=== PATIENT | female | born 1935 | race Caucasian/White ===

== ENCOUNTER 2017-01-28 10:38 | Outpatient (CLI) | payer MEDICARE, OTHER | END 2017-01-28 10:39 | disposition home or self-care (01) | LOC: LAB.F 10:38 | PROVIDERS: ATTEND Internal Medicine | DX: I48.91 Unspecified atrial fibrillation (principal); Z79.01 Long term (current) use of anticoagulants | CPT/HCPCS: 85610 ==

== ENCOUNTER 2017-03-23 10:38 | Outpatient (CLI) | payer MEDICARE, OTHER | END 2017-03-23 10:39 | disposition home or self-care (01) | LOC: LAB.F 10:38 | PROVIDERS: ATTEND Internal Medicine | DX: I48.91 Unspecified atrial fibrillation (principal); Z79.01 Long term (current) use of anticoagulants | CPT/HCPCS: 85610 ==

== ENCOUNTER 2017-04-29 14:43 | Outpatient (CLI) | payer MEDICARE, OTHER | END 2017-04-29 14:44 | disposition home or self-care (01) | LOC: LAB.F 14:43 | PROVIDERS: ATTEND Internal Medicine | DX: I48.91 Unspecified atrial fibrillation (principal); Z79.01 Long term (current) use of anticoagulants | CPT/HCPCS: 85610 ==

== ENCOUNTER 2017-06-01 15:50 | Outpatient (CLI) | payer MEDICARE, OTHER | END 2017-06-01 15:51 | disposition home or self-care (01) | LOC: LAB.F 15:50 | PROVIDERS: ATTEND Internal Medicine | DX: I48.91 Unspecified atrial fibrillation (principal); Z79.01 Long term (current) use of anticoagulants | CPT/HCPCS: 85610 ==

== ENCOUNTER 2017-07-19 09:58 | Outpatient (CLI) | payer MEDICARE, OTHER | END 2017-07-19 09:59 | disposition home or self-care (01) | LOC: LAB.F 09:58 | PROVIDERS: ATTEND Internal Medicine | DX: I48.91 Unspecified atrial fibrillation (principal); Z79.01 Long term (current) use of anticoagulants | CPT/HCPCS: 85610 ==

== ENCOUNTER 2017-09-06 08:11 | Outpatient (CLI) | payer MEDICARE, OTHER | END 2017-09-06 08:12 | disposition home or self-care (01) | LOC: LAB.F 08:11 | PROVIDERS: ATTEND Internal Medicine | DX: I48.91 Unspecified atrial fibrillation (principal); Z79.01 Long term (current) use of anticoagulants | CPT/HCPCS: 85610 ==

== ENCOUNTER 2017-09-27 08:16 | Outpatient (CLI) | payer MEDICARE, OTHER | END 2017-09-27 08:17 | disposition home or self-care (01) | LOC: LAB.F 08:16 | PROVIDERS: ATTEND Internal Medicine | DX: I48.91 Unspecified atrial fibrillation (principal); Z79.01 Long term (current) use of anticoagulants | CPT/HCPCS: 85610 ==

== ENCOUNTER 2017-11-18 10:02 | Outpatient (CLI) | payer MEDICARE, OTHER | END 2017-11-18 10:03 | disposition home or self-care (01) | LOC: DI 10:02 | PROVIDERS: ATTEND Internal Medicine Cardiovascular Disease | DX: I48.91 Unspecified atrial fibrillation (principal); I50.9 Heart failure, unspecified | CPT/HCPCS: 93306 ==

== ENCOUNTER 2017-11-22 09:25 | Outpatient (CLI) | payer MEDICARE, OTHER | END 2017-11-22 09:26 | disposition home or self-care (01) | LOC: LAB.F 09:25 | PROVIDERS: ATTEND Internal Medicine | DX: Z79.01 Long term (current) use of anticoagulants (principal) | CPT/HCPCS: 85610 ==

== ENCOUNTER 2017-11-29 08:44 | Outpatient (CLI) | payer MEDICARE, OTHER | END 2017-11-29 08:45 | disposition home or self-care (01) | LOC: LAB.F 08:44 | PROVIDERS: ATTEND Internal Medicine | DX: Z79.01 Long term (current) use of anticoagulants (principal) | CPT/HCPCS: 85610 ==

== ENCOUNTER 2017-12-06 08:23 | Outpatient (CLI) | payer MEDICARE, OTHER | END 2017-12-06 08:24 | disposition home or self-care (01) | LOC: LAB.F 08:23 | PROVIDERS: ATTEND Internal Medicine | DX: Z79.01 Long term (current) use of anticoagulants (principal) | CPT/HCPCS: 85610 ==

== ENCOUNTER 2017-12-07 09:06 | Outpatient (CLI) | payer MEDICARE, OTHER ==
[2017-12-07 09:47] LABS: CALCIUM 9.8 mg/dL (8.5-10.3); CREATININE 1.2 mg/dL (0.4-1.0)
== END 2017-12-07 09:07 | disposition home or self-care (01) ==
LOC: LAB 09:06
PROVIDERS: ATTEND Internal Medicine Cardiovascular Disease
DX: N18.3 Chronic kidney disease, stage 3 (moderate) (principal); I50.22 Chronic systolic (congestive) heart failure
CPT/HCPCS: 36415; 80048; 83880

== ENCOUNTER 2017-12-13 08:00 | Outpatient (CLI) | payer MEDICARE, OTHER | END 2017-12-13 08:01 | disposition home or self-care (01) | LOC: LAB.F 08:00 | PROVIDERS: ATTEND Family Medicine | DX: I48.91 Unspecified atrial fibrillation (principal) | CPT/HCPCS: 85610 ==

== ENCOUNTER 2017-12-20 11:21 | Outpatient (CLI) | payer MEDICARE, OTHER | END 2017-12-20 11:22 | disposition home or self-care (01) | LOC: LAB.F 11:21 | PROVIDERS: ATTEND Family Medicine | DX: I48.91 Unspecified atrial fibrillation (principal) | CPT/HCPCS: 85610 ==

== ENCOUNTER 2017-12-27 08:01 | Outpatient (CLI) | payer MEDICARE, OTHER | END 2017-12-27 08:02 | disposition home or self-care (01) | LOC: LAB.F 08:01 | PROVIDERS: ATTEND Family Medicine | DX: I48.91 Unspecified atrial fibrillation (principal) | CPT/HCPCS: 85610 ==

== ENCOUNTER 2018-01-02 14:47 | Outpatient (CLI) | END 2018-01-02 14:48 | disposition home or self-care (01) ==

== ENCOUNTER 2018-01-13 10:16 | Outpatient (CLI) | payer MEDICARE, OTHER | END 2018-01-13 10:17 | disposition home or self-care (01) | LOC: LAB.F 10:16 | PROVIDERS: ATTEND Family Medicine | DX: I48.91 Unspecified atrial fibrillation (principal) | CPT/HCPCS: 85610 ==

== ENCOUNTER 2018-02-07 11:29 | Outpatient (CLI) | payer MEDICARE, OTHER | END 2018-02-07 11:30 | disposition home or self-care (01) | LOC: LAB.F 11:29 | PROVIDERS: ATTEND Family Medicine | DX: I48.91 Unspecified atrial fibrillation (principal) | CPT/HCPCS: 85610 ==

== ENCOUNTER 2018-02-14 08:00 | Outpatient (CLI) | payer MEDICARE, OTHER | END 2018-02-14 08:01 | disposition home or self-care (01) | LOC: LAB.F 08:00 | PROVIDERS: ATTEND Family Medicine | DX: I48.91 Unspecified atrial fibrillation (principal) | CPT/HCPCS: 85610 ==

== ENCOUNTER 2018-02-21 10:55 | Outpatient (CLI) | payer MEDICARE, OTHER | END 2018-02-21 10:56 | disposition home or self-care (01) | LOC: LAB.F 10:55 | PROVIDERS: ATTEND Family Medicine | DX: I48.91 Unspecified atrial fibrillation (principal) | CPT/HCPCS: 85610 ==

== ENCOUNTER 2018-03-01 14:30 | Outpatient (CLI) | payer MEDICARE, OTHER | END 2018-03-01 14:31 | disposition home or self-care (01) | LOC: LAB.F 14:30 | PROVIDERS: ATTEND Family Medicine | DX: I48.91 Unspecified atrial fibrillation (principal) | CPT/HCPCS: 85610 ==

== ENCOUNTER 2018-03-07 10:56 | Outpatient (CLI) | payer MEDICARE, OTHER | END 2018-03-07 10:57 | disposition home or self-care (01) | LOC: LAB.F 10:56 | PROVIDERS: ATTEND Family Medicine | DX: N18.3 Chronic kidney disease, stage 3 (moderate) (principal); I48.91 Unspecified atrial fibrillation; I42.9 Cardiomyopathy, unspecified; I50.32 Chronic diastolic (congestive) heart failure; E78.5 Hyperlipidemia, unspecified | CPT/HCPCS: 85610 ==

== ENCOUNTER 2018-03-08 09:03 | Outpatient (CLI) | payer MEDICARE, OTHER ==
[2018-03-08 11:45] LABS: ALBUMIN 4.3 g/dL (3.2-5.5); ALBUMIN/GLOBULIN RATIO 1.5 (1.0-2.2); ALKALINE PHOSPHATASE 32 IU/L (42-121); ALT ALANINE AMINOTRANSFERASE 18 IU/L (10-60); AST ASPARTATE AMINOTRANSFERASE 33 IU/L (10-42); BILIRUBIN,TOTAL 1.1 mg/dL (0.2-1.0); BUN - BLOOD UREA NITROGEN 25 mg/dL (6-20); CALCIUM 9.2 mg/dL (8.5-10.3); CARBON DIOXIDE - CO2 32 mmol/L (21-32); CHLORIDE 99 mmol/L (101-111); CHOL/HDL RATIO 2.8 (<4.4); CHOLESTEROL 208 mg/dL; CREATININE 0.8 mg/dL (0.4-1.0); GFR - MDRD 69 (>89); GLUCOSE 88 mg/dL (70-100); HDL CHOLESTEROL 74 mg/dL; LDL CHOLESTEROL,CALCULATED 109 mg/dL; LDL CHOLESTEROL,DIRECT 103 mg/dL; LDL/HDL RATIO 1.5 (<4.4); SODIUM 137 mmol/L (135-145); TOTAL PROTEIN 7.2 g/dL (6.7-8.2); VLDL CHOLESTEROL 25 mg/dL
== END 2018-03-08 09:04 | disposition home or self-care (01) ==
LOC: LAB.F 09:03
PROVIDERS: ATTEND Internal Medicine Cardiovascular Disease
DX: N18.3 Chronic kidney disease, stage 3 (moderate) (principal); I50.32 Chronic diastolic (congestive) heart failure; I42.9 Cardiomyopathy, unspecified; E78.5 Hyperlipidemia, unspecified
CPT/HCPCS: 36415; 80053; 80061; 83721; 83880

== ENCOUNTER 2018-03-15 15:53 | Outpatient (CLI) | payer MEDICARE, OTHER | END 2018-03-15 15:54 | disposition home or self-care (01) | LOC: LAB.F 15:53 | PROVIDERS: ATTEND Family Medicine | DX: I48.91 Unspecified atrial fibrillation (principal) | CPT/HCPCS: 85610 ==

== ENCOUNTER 2018-04-04 09:57 | Outpatient (CLI) | payer MEDICARE, OTHER | END 2018-04-04 09:58 | disposition home or self-care (01) | LOC: LAB.F 09:57 | PROVIDERS: ATTEND Family Medicine | DX: I48.91 Unspecified atrial fibrillation (principal) | CPT/HCPCS: 85610 ==

== ENCOUNTER 2018-05-02 11:15 | Outpatient (CLI) | payer MEDICARE, OTHER | END 2018-05-02 11:16 | disposition home or self-care (01) | LOC: LAB.F 11:15 | PROVIDERS: ATTEND Family Medicine | DX: I48.91 Unspecified atrial fibrillation (principal) | CPT/HCPCS: 85610 ==

== ENCOUNTER 2018-06-06 08:59 | Outpatient (CLI) | payer MEDICARE, OTHER | END 2018-06-06 09:00 | disposition home or self-care (01) | LOC: LAB.F 08:59 | PROVIDERS: ATTEND Family Medicine | DX: I48.91 Unspecified atrial fibrillation (principal) | CPT/HCPCS: 85610 ==

== ENCOUNTER 2018-06-08 09:15 | Outpatient (CLI) | payer MEDICARE, OTHER ==
[2018-06-08 10:06] LABS: CALCIUM 8.9 mg/dL (8.5-10.3)
== END 2018-06-08 09:16 | disposition home or self-care (01) ==
LOC: LAB 09:15
PROVIDERS: ATTEND Internal Medicine Cardiovascular Disease
DX: N18.3 Chronic kidney disease, stage 3 (moderate) (principal); I50.22 Chronic systolic (congestive) heart failure
CPT/HCPCS: 36415; 80048; 83880

== ENCOUNTER 2018-11-21 12:33 | Outpatient (CLI) | payer MEDICARE, OTHER | END 2018-11-21 12:34 | disposition home or self-care (01) | LOC: LAB.F 12:33 | PROVIDERS: ATTEND Family Medicine | DX: I48.91 Unspecified atrial fibrillation (principal) | CPT/HCPCS: 85610 ==

== ENCOUNTER 2018-12-18 11:24 | Outpatient (CLI) | payer MEDICARE, OTHER | END 2018-12-18 11:25 | disposition home or self-care (01) | LOC: LAB.F 11:24 | PROVIDERS: ATTEND Family Medicine | DX: I48.91 Unspecified atrial fibrillation (principal) | CPT/HCPCS: 85610 ==

== ENCOUNTER 2019-01-02 08:00 | Outpatient (CLI) | payer MEDICARE, OTHER | END 2019-01-02 23:59 | disposition home or self-care (01) | LOC: LAB.F 08:00 | PROVIDERS: ATTEND Family Medicine | DX: I48.91 Unspecified atrial fibrillation (principal) | CPT/HCPCS: 85610 ==

== ENCOUNTER 2019-02-02 10:12 | Outpatient (CLI) | payer MEDICARE, OTHER | END 2019-02-02 10:13 | disposition home or self-care (01) | LOC: LAB 10:12 | PROVIDERS: ATTEND Family Medicine | DX: I48.91 Unspecified atrial fibrillation (principal) | CPT/HCPCS: 85610 ==

== ENCOUNTER 2019-03-01 12:52 | Outpatient (CLI) | payer MEDICARE, OTHER | END 2019-03-01 12:53 | disposition home or self-care (01) | LOC: LAB 12:52 | PROVIDERS: ATTEND Family Medicine | DX: I48.91 Unspecified atrial fibrillation (principal) | CPT/HCPCS: 85610 ==

== ENCOUNTER 2019-04-05 12:34 | Outpatient (CLI) | payer MEDICARE, OTHER | END 2019-04-05 12:35 | disposition home or self-care (01) | LOC: LAB.S 12:34 | PROVIDERS: ATTEND Family Medicine | DX: I48.91 Unspecified atrial fibrillation (principal) | CPT/HCPCS: 85610 ==

== ENCOUNTER 2019-04-13 12:57 | Outpatient (CLI) | payer MEDICARE, OTHER ==
[2019-04-13 13:51] LABS: ALBUMIN 4.4 g/dL (3.2-5.5); ALBUMIN/GLOBULIN RATIO 1.5 (1.0-2.2); ALKALINE PHOSPHATASE 40 IU/L (42-121); ALT ALANINE AMINOTRANSFERASE 15 IU/L (10-60); AST ASPARTATE AMINOTRANSFERASE 29 IU/L (10-42); BILIRUBIN,TOTAL 0.6 mg/dL (0.2-1.0); BUN - BLOOD UREA NITROGEN 36 mg/dL (6-20); CALCIUM 9.3 mg/dL (8.5-10.3); CARBON DIOXIDE - CO2 32 mmol/L (21-32); CHLORIDE 97 mmol/L (101-111); CHOL/HDL RATIO 2.3 (<4.4); CHOLESTEROL 174 mg/dL; CREATININE 1.2 mg/dL (0.4-1.0); GFR - MDRD 43 (>89); GLUCOSE 100 mg/dL (70-100); HDL CHOLESTEROL 77 mg/dL; LDL CHOLESTEROL,CALCULATED 69 mg/dL; LDL/HDL RATIO 0.9 (<4.4); SODIUM 138 mmol/L (135-145); TOTAL PROTEIN 7.3 g/dL (6.7-8.2); VLDL CHOLESTEROL 28 mg/dL
== END 2019-04-13 12:58 | disposition home or self-care (01) ==
LOC: LAB 12:57
PROVIDERS: ATTEND Internal Medicine Cardiovascular Disease
DX: N18.3 Chronic kidney disease, stage 3 (moderate) (principal); E78.5 Hyperlipidemia, unspecified; I50.22 Chronic systolic (congestive) heart failure; I42.9 Cardiomyopathy, unspecified
CPT/HCPCS: 36415; 80053; 80061; 81599; 82172; 83721

== ENCOUNTER 2020-01-04 15:24 | Outpatient (CLI) | payer MEDICARE, OTHER | END 2020-01-04 15:25 | disposition home or self-care (01) | LOC: LAB 15:24 | PROVIDERS: ATTEND Family Medicine | DX: I48.91 Unspecified atrial fibrillation (principal) | CPT/HCPCS: 85610 ==

== ENCOUNTER 2020-01-18 11:41 | Outpatient (CLI) | payer MEDICARE, OTHER | END 2020-01-18 11:42 | disposition home or self-care (01) | LOC: LAB.S 11:41 | PROVIDERS: ATTEND Family Medicine | DX: I48.91 Unspecified atrial fibrillation (principal) | CPT/HCPCS: 85610 ==

== ENCOUNTER 2020-02-04 11:06 | Outpatient (CLI) | payer MEDICARE, OTHER ==
[2020-02-04 11:53] LABS: ALBUMIN 4.4 g/dL (3.2-5.5); ALBUMIN/GLOBULIN RATIO 1.6 (1.0-2.2); ALKALINE PHOSPHATASE 43 IU/L (42-121); ALT ALANINE AMINOTRANSFERASE 18 IU/L (10-60); AST ASPARTATE AMINOTRANSFERASE 31 IU/L (10-42); BUN - BLOOD UREA NITROGEN 27 mg/dL (6-20); CALCIUM 9.5 mg/dL (8.5-10.3); CARBON DIOXIDE - CO2 31 mmol/L (21-32); CHLORIDE 97 mmol/L (101-111); CHOL/HDL RATIO 2.3 (<4.4); CHOLESTEROL 173 mg/dL; CREATININE 1.1 mg/dL (0.4-1.0); GLUCOSE 94 mg/dL (70-100); HDL CHOLESTEROL 76 mg/dL; LDL CHOLESTEROL,CALCULATED 81 mg/dL; LDL/HDL RATIO 1.1 (<4.4); SODIUM 138 mmol/L (135-145); TOTAL PROTEIN 7.1 g/dL (6.7-8.2); VLDL CHOLESTEROL 16 mg/dL
== END 2020-02-04 11:07 | disposition home or self-care (01) ==
LOC: LAB 11:06
PROVIDERS: ATTEND Internal Medicine Cardiovascular Disease
DX: N18.3 Chronic kidney disease, stage 3 (moderate) (principal); I50.22 Chronic systolic (congestive) heart failure; I42.9 Cardiomyopathy, unspecified
CPT/HCPCS: 36415; 80053; 80061; 81599; 82172; 83721; 83880

== ENCOUNTER 2020-03-07 11:33 | Outpatient (CLI) | payer MEDICARE, OTHER | END 2020-03-07 11:34 | disposition home or self-care (01) | LOC: LAB 11:33 | PROVIDERS: ATTEND Family Medicine | DX: I48.91 Unspecified atrial fibrillation (principal) | CPT/HCPCS: 85610 ==

== ENCOUNTER 2020-04-17 15:24 | Outpatient (CLI) | payer MEDICARE, OTHER | END 2020-04-17 15:25 | disposition home or self-care (01) | LOC: LAB.S 15:24 | PROVIDERS: ATTEND Family Medicine | DX: I48.91 Unspecified atrial fibrillation (principal) | CPT/HCPCS: 85610 ==

== ENCOUNTER 2020-05-05 12:12 | Outpatient (CLI) | payer MEDICARE, OTHER | END 2020-05-05 12:13 | disposition home or self-care (01) | LOC: LAB 12:12 | PROVIDERS: ATTEND Family Medicine | DX: I48.91 Unspecified atrial fibrillation (principal) | CPT/HCPCS: 85610 ==

== ENCOUNTER 2020-05-19 13:46 | Outpatient (CLI) | payer MEDICARE, OTHER | END 2020-05-19 13:47 | disposition home or self-care (01) | LOC: LAB 13:46 | PROVIDERS: ATTEND Family Medicine | DX: I48.91 Unspecified atrial fibrillation (principal); I49.1 Atrial premature depolarization | CPT/HCPCS: 85610 ==

== ENCOUNTER 2020-06-11 11:33 | Outpatient (CLI) | payer MEDICARE, OTHER | END 2020-06-11 11:34 | disposition home or self-care (01) | LOC: LAB.S 11:33 | PROVIDERS: ATTEND Family Medicine | DX: I48.91 Unspecified atrial fibrillation (principal) | CPT/HCPCS: 85610 ==

== ENCOUNTER 2020-07-02 11:31 | Outpatient (CLI) | payer MEDICARE, OTHER | END 2020-07-02 11:32 | disposition home or self-care (01) | LOC: LAB.S 11:31 | PROVIDERS: ATTEND Family Medicine | DX: I48.91 Unspecified atrial fibrillation (principal) | CPT/HCPCS: 85610 ==

== ENCOUNTER 2020-07-30 11:21 | Outpatient (CLI) | payer MEDICARE, OTHER | END 2020-07-30 11:22 | disposition home or self-care (01) | LOC: LAB.S 11:21 | PROVIDERS: ATTEND Family Medicine | DX: I48.91 Unspecified atrial fibrillation (principal) | CPT/HCPCS: 85610 ==

== ENCOUNTER 2020-08-02 08:00 | Outpatient (CLI) | payer MEDICARE, OTHER ==
--- NOTE | 2020-08-02 17:49 | XRAY Report ---
PROCEDURE: Foot 3 View LT INDICATIONS: LEFT FOOT PAIN/5TH METATARSAL TECHNIQUE: 3 views of the foot were acquired. COMPARISON: None FINDINGS: Bones: Osseous structures are demineralized limiting evaluation for nondisplaced fracture. There is n o displaced fracture or dislocation. Alignment is normal. Joint spacing is maintained. There is very mild degenerative changes of the midfoot, interphalangeal, and metatarsophalangeal joints. Soft tissues: No tibiotalar joint effusion. Spurring of the calcaneus at the plantar fascial and Achi lles insertions. Soft tissue calcifications along the plantar aspect may also represent plantar fasci al calcifications. There is mild vascular calcifications about the foot. IMPRESSION: No acute osseous abnormality. Plantar fascial calcifications. Calcaneal spurring at the Achilles and plantar fascial insertions as well. Very mild degenerative changes of the foot. Reviewed by: Rudy Keen DO on 08/02/2020 4:47 PM [place] Approved by: Rudy Keen DO on 08/02/2020 4:47 PM [facility] Station ID: [id number]
== END 2020-08-02 23:59 | disposition home or self-care (01) ==
LOC: DI.S 08:00
PROVIDERS: ATTEND Physician Assistant
DX: M77.32 Calcaneal spur, left foot (principal); R93.89 Abnormal findings on diagnostic imaging of other specified body structures; R93.6 Abnormal findings on diagnostic imaging of limbs; M19.072 Primary osteoarthritis, left ankle and foot

== ENCOUNTER 2020-08-27 11:50 | Outpatient (CLI) | payer MEDICARE, OTHER | END 2020-08-27 11:51 | disposition home or self-care (01) | LOC: LAB.S 11:50 | PROVIDERS: ATTEND Family Medicine | DX: I48.91 Unspecified atrial fibrillation (principal) | CPT/HCPCS: 85610 ==

== ENCOUNTER 2020-09-17 11:26 | Outpatient (CLI) | payer MEDICARE, OTHER | END 2020-09-17 11:27 | disposition home or self-care (01) | LOC: LAB.S 11:26 | PROVIDERS: ATTEND Family Medicine | DX: I48.91 Unspecified atrial fibrillation (principal) | CPT/HCPCS: 85610 ==

== ENCOUNTER 2020-10-13 12:49 | Outpatient (CLI) | payer MEDICARE, OTHER | END 2020-10-13 12:50 | disposition home or self-care (01) | LOC: LAB 12:49 | PROVIDERS: ATTEND Family Medicine | DX: I48.91 Unspecified atrial fibrillation (principal) | CPT/HCPCS: 85610 ==

== ENCOUNTER 2020-10-15 08:57 | Outpatient (CLI) | payer MEDICARE, OTHER | END 2020-10-15 08:58 | disposition home or self-care (01) | LOC: LAB.S 08:57 | PROVIDERS: ATTEND Internal Medicine | DX: E03.9 Hypothyroidism, unspecified (principal) | CPT/HCPCS: 36415; 84443 ==

== ENCOUNTER 2020-11-05 10:52 | Outpatient (CLI) | payer MEDICARE, OTHER | END 2020-11-05 10:53 | disposition home or self-care (01) | LOC: LAB.S 10:52 | PROVIDERS: ATTEND Family Medicine | DX: I48.91 Unspecified atrial fibrillation (principal) | CPT/HCPCS: 36416; 85610 ==

== ENCOUNTER 2020-12-10 09:57 | Outpatient (CLI) | payer MEDICARE, OTHER | END 2020-12-10 09:58 | disposition home or self-care (01) | LOC: LAB.S 09:57 | PROVIDERS: ATTEND Family Medicine | DX: I48.91 Unspecified atrial fibrillation (principal) | CPT/HCPCS: 36416; 85610 ==

== ENCOUNTER 2021-01-07 11:23 | Outpatient (CLI) | payer MEDICARE, OTHER | END 2021-01-07 11:24 | disposition home or self-care (01) | LOC: LAB.S 11:23 | PROVIDERS: ATTEND Family Medicine | DX: I48.91 Unspecified atrial fibrillation (principal) | CPT/HCPCS: 36416; 85610 ==

== ENCOUNTER 2021-01-30 12:48 | Outpatient (CLI) | payer MEDICARE, OTHER | END 2021-01-30 12:49 | disposition home or self-care (01) | LOC: LAB.S 12:48 | PROVIDERS: ATTEND Family Medicine | DX: I48.91 Unspecified atrial fibrillation (principal) | CPT/HCPCS: 36416; 85610 ==

== ENCOUNTER 2021-02-05 08:55 | Outpatient (CLI) | payer MEDICARE, OTHER | END 2021-02-05 23:59 | disposition home or self-care (01) | LOC: RT 08:55 | PROVIDERS: ATTEND Nurse Practitioner Family | DX: R01.1 Cardiac murmur, unspecified (principal) | CPT/HCPCS: 93005 ==

== ENCOUNTER 2021-02-18 11:31 | Outpatient (CLI) | payer MEDICARE, OTHER | END 2021-02-18 11:32 | disposition home or self-care (01) | LOC: LAB.S 11:31 | PROVIDERS: ATTEND Family Medicine | DX: I48.91 Unspecified atrial fibrillation (principal) | CPT/HCPCS: 36416; 85610 ==

== ENCOUNTER 2021-02-19 07:58 | Outpatient (CLI) | payer MEDICARE, OTHER | END 2021-02-19 07:59 | disposition home or self-care (01) | LOC: DI 07:58 | PROVIDERS: ATTEND Nurse Practitioner Family | DX: I08.2 Rheumatic disorders of both aortic and tricuspid valves (principal); Z95.0 Presence of cardiac pacemaker; I87.8 Other specified disorders of veins | CPT/HCPCS: 93306 ==

== ENCOUNTER 2021-02-24 09:02 | Outpatient (CLI) | payer MEDICARE, OTHER ==
[2021-02-24] MEDS ORDERED: REGADENOSON 0.4 MG/5 ML SYRINGE IVP ONE ×2 (10:44→14:49)
[2021-02-24] MEDS ORDERED: AMINOPHYLLINE 500 MG/20 ML VIAL ONE (10:45)
--- NOTE | 2021-02-24 11:11 | CARDIAC PROCEDURE NOTE ---
Stress Test Report Service Date: 02/24/21 Service Time: 09:30 Ordering Provider: Erika Elaine ARNP Indication for Test: Assess for myocardia ischemia in patient with reduced exertional tolerance and fatigue. Significant Medical History: -Ophelia is referred for Lexiscan stress myocardial perfusion imaging today, as part of a workup for decreased exertional tolerance and fatigue, with gradual onset noted over the past several months. She reports generally feeling well in the mornings following arising and starting her day, but if she is physically active she finds herself exhausted by mid-day. She denies worsening dyspnea, edema, chest pressure/heaviness and lightheadedness. -She is followed for her complex cardiovascular issues by Dr Juan Mtz, whose office kindly provided the progress note from her most recent clinic visit with him, on 02/26/20. Her CV history includes: -Sick sinus syndrome with dual chamber pacemaker placement in 2014 for bradycardia, as well as paroxysmal atrial fibrillation, s/p elective cardioversi on in 2018 (with symptom reduction). Pacemaker interrogation on 06/03/20 revealed a normally functioning [employer] dual chamber pacemaker with good battery life, appropriate functional parameters, pacing 26% in the atrium and 1% in the ventricle, with no high rate episodes. An EKG performed on 02/05/21 as part of current evaluation revealed atrial-paced rhythm, normal QRS duration, axis and morphology, with nonspecific T-wave flattening. -History of nonischemic cardiomyopathy, with LV EF 35-40% in 2018, subsequently improved with goal-directed medical therapies and LV EF 60% on TTE performed at [facility] on 02/19/21. Cardiac cath performed in 2014 in [place], [place], was notable for mild non-obstructive CAD, although her clinic note mentions repeat cath in [place] in 07/2019 with "successful PCI", she denies travel to [place] at that time as well as having this procedure. -Moderate calcific aortic stenosis; a NEW FINDING by TTE of 02/19/21, with peak/mean gradients 29/18 mmHg, Vmax 2.7 m/s and HILDA of 1.25 cm2 by continuity equation. -Longstanding pulmonary hypertension (?WHO type 2); initially documented on TTE dated 06/09/18 with est PASP of 64 mmHg. Recent TTE cited above indicates est PASP of 74 mmHg with normal sized right ventricle showing moderately impaired systolic function. Cardiac Risk Factors: History of known prior non-obstructive CAD in setting of hypertension, hyperlipidemia; she denies significant family history of CAD or diabetes. She smoked cigarettes remotely. Other potential risk-enhancing conditions include advanced age, stage III CKD, recently diagnosed calcific aortic stenosis. Type of Stress Test: Pharmacologic Stress Test with MPI Pharmacologic Agent: Lexiscan Procedure: -Pharmacologic Stress Test- After signing informed consent, the patient underwent resting SPECT imaging, followed by a walking (0.8 mph, flat) pharmacologic stress test using Lexiscan. The test was terminated due to completing the protocol. Resting heart rate: 62 Peak heart rate: 124 Exaggerated HR response. Resting BP: 143/74 Peak BP: 167/78 Hypertensive BP response. Rhythm during testing: Paced atrial -> sinus -> intermittent paced atrial. Symptoms: Patient described awareness of elevated heart rate. EKG at rest showed atrial-paced rhythm with normal QRS/ST/T pattern. EKG at peak stress showed no ischemia by EKG criteria. In Recovery heart rate rapidly declined, with intermittent atrial pacing. Stress SPECT imaging was obtained following completion of the Lexiscan injection protocol. Summary: 1) Normal resting EKG. 2) Adequate stress was achieved. 3) Abnormal BP response to pharmacologic agent. 4) No ischemic changes by EKG criteria were seen at peak stress. 5) Resting and vasodilator-associated nuclear images were obtained, showing: (A) Evaluation was limited by patient's inability to complete imaging in the prone position; (B) Gated imaging revealed normal left ventricular volume and hyperdynamic resting systolic function; (C) Resting perfusion by SPECT analysis shows a moderate-sized fixed defect in the mid-distal inferior wall, likely representing soft-tissue attenuation artifact, given absence of an associated wall motion abnormality; (D) Reversible perfusion defects were present in the proximal to mid anterior wall and in the proximal inferior wall, that could represent ischemia versus attenuation artifact. See separate nuclear imaging report for greater detail. CONCLUSIONS: 1) This is an abnormal lexiscan stress nuclear imaging study, with possible ischemia in the anterior and inferior mcgee. 2) The patient reports an appointment scheduled in the next several days with her primary correctional counselor (Dr Mtz), to whom this report will be faxed.
--- NOTE | 2021-02-24 15:05 | Nuclear Medicine Report ---
PROCEDURE: Rest and exercise myocardial perfusion SPECT with gated imaging and ejection fraction INDICATIONS: CARDIAC MURMUR RADIOPHARMACEUTICAL: 13.7 mCi Tc-99m Myoview IV at rest and 21.5 mCi Tc-99m Myoview IV at peak exerc ise. [id number] was performed. TECHNIQUE: Radiopharmaceutical was injected at peak stress test, and also at rest. SPECT images wer e obtained. SPECT myocardial perfusion images were displayed in short axis, horizontal long axis, an d vertical long axis views. Gated images were reviewed using Auto[employer] software. COMPARISON: None available. FINDINGS: Raw data: There is good myocardial labeling by radiotracer. No significant motion artifacts. Lung- to-heart ratio is 0.24 (normal is less than 0.46 for tetrafosmin tracer). Left ventricle function: Gated images demonstrate normal left ventricle wall thickening. No segment al wall motion abnormality. No transient ischemic dilation; TID is 1.1 (normal less than 1.30). The left ventricle resting end-diastolic volume is 29 mL. Left ventricle stress ejection fraction is 95 %; normal values are above 45%. Myocardial perfusion: There is normal relative distribution of activity in the left and right ventri cular myocardium. Evaluation is limited by absence of prone imaging due to patient's inability to to lerate positioning. There is a moderate sized fixed area of perfusion deficit. The findings are elena tible with a prior infarct or soft tissue attenuation artifact, with artifact favored given the absen ce of associated wall motion abnormality. A small reversible deficit is also noted in the proximal in ferior wall which may reflect soft tissue attenuation artifact but may also represent ischemia. Withi n the proximal to mid anterior wall, there is also a moderate-sized reversible perfusion deficit whic h may represent soft tissue attenuation artifact or ischemia. IMPRESSION: 1. Probable abnormal myocardial perfusion images with evaluation limited by the absence of prone imag ing. Moderate-sized fixed perfusion deficit within the mid to distal inferior wall likely represents soft tissue attenuation artifact given the absence of associated wall motion abnormality but a prior infarct is not excluded. The reversible perfusion deficits within the proximal to mid anterior wall a nd proximal inferior wall may represent ischemia, versus attenuation artifact. Recommend correlation clinically. 2. Normal left ventricular ejection fraction without segmental wall motion abnormalities. 3. No diagnostic EKG changes of ischemia following pharmacologic stress. PQRS ATTESTATIONS: Measure 322 - Is this imaging test primarily performed on a low-risk surgery patient for preoperative evaluation within 30 days preceding their low-risk non-cardiac surgery? Low-risk surgery is defined as cardiac or myocardial infarction less than 1%, including (but not limited to) endoscopic pr ocedures, superficial procedures, cataract surgery, and excisional breast surgery: Answer: No Measure 323 - Is this imaging test performed primarily for the monitoring of an asymptomatic patient who had percutaneous coronary intervention on the visit date or within 2 years of the visit date? An swer: No Measure 324 - Is this imaging test performed primarily for the initial detection and risk assessment on an asymptomatic, low coronary heart disease patient? Low CHD risk definition = clinicians should consider the maximum number of available patient factors used to estimate risk based on [place] (A TP III criteria), typically age, gender, diabetes, smoking status, and use of blood pressure medicati on, and integrate age appropriate estimates for missing elements, such as LDL or standard blood press ure. Answer: No Reviewed by: Ventura Case MD on 02/24/2021 3:04 PM PDT Approved by: Ventura Case MD on 02/24/2021 3:04 PM PDT Station ID: [id number]
== END 2021-02-24 09:03 | disposition home or self-care (01) ==
LOC: DI 09:02
PROVIDERS: ATTEND Nurse Practitioner Family
DX: Z01.810 Encounter for preprocedural cardiovascular examination (principal); R01.1 Cardiac murmur, unspecified; R93.1 Abnormal findings on diagnostic imaging of heart and coronary circulation
CPT/HCPCS: 78452; 93017; A9500; J2785

== ENCOUNTER 2021-03-02 12:27 | Outpatient (CLI) | payer MEDICARE, OTHER ==
[2021-03-02 13:02] LABS: ALBUMIN 4.3 g/dL (3.2-5.5); ALBUMIN/GLOBULIN RATIO 1.6 (1.0-2.2); ALKALINE PHOSPHATASE 42 IU/L (42-121); ALT ALANINE AMINOTRANSFERASE 16 IU/L (10-60); AST ASPARTATE AMINOTRANSFERASE 29 IU/L (10-42); BILIRUBIN,TOTAL 1.1 mg/dL (0.2-1.0); BUN - BLOOD UREA NITROGEN 27 mg/dL (6-20); CALCIUM 9.4 mg/dL (8.5-10.3); CARBON DIOXIDE - CO2 33 mmol/L (21-32); CHLORIDE 98 mmol/L (101-111); CHOL/HDL RATIO 1.8 (<4.4); CHOLESTEROL 180 mg/dL; CREATININE 0.9 mg/dL (0.4-1.0); GFR - MDRD 59 (>89); GLUCOSE 90 mg/dL (70-100); HDL CHOLESTEROL 99 mg/dL; LDL CHOLESTEROL,CALCULATED 65 mg/dL; LDL/HDL RATIO 0.7 (<4.4); POTASSIUM 4.1 mmol/L (3.5-5.0); SODIUM 138 mmol/L (135-145); TRIGLYCERIDES 79 mg/dL; VLDL CHOLESTEROL 16 mg/dL
== END 2021-03-02 12:28 | disposition home or self-care (01) ==
LOC: LAB 12:27
PROVIDERS: ATTEND Internal Medicine Cardiovascular Disease
DX: E78.5 Hyperlipidemia, unspecified (principal); I50.22 Chronic systolic (congestive) heart failure
CPT/HCPCS: 36415; 80053; 80061; 81599; 82172; 83721; 83880

== ENCOUNTER 2021-03-18 11:45 | Outpatient (CLI) | payer MEDICARE, OTHER | END 2021-03-18 11:46 | disposition home or self-care (01) | LOC: LAB.S 11:45 | PROVIDERS: ATTEND Family Medicine | DX: I48.91 Unspecified atrial fibrillation (principal) | CPT/HCPCS: 36416; 85610 ==

== ENCOUNTER 2021-03-30 14:13 | Outpatient (CLI) | payer MEDICARE, OTHER | END 2021-03-30 14:14 | disposition home or self-care (01) | LOC: LAB 14:13 | PROVIDERS: ATTEND Family Medicine | DX: I48.91 Unspecified atrial fibrillation (principal) | CPT/HCPCS: 36416; 85610 ==

== ENCOUNTER 2021-05-06 11:29 | Outpatient (CLI) | payer MEDICARE, OTHER | END 2021-05-06 11:30 | disposition home or self-care (01) | LOC: LAB.S 11:29 | PROVIDERS: ATTEND Family Medicine | DX: I48.91 Unspecified atrial fibrillation (principal) | CPT/HCPCS: 36416; 85610 ==

== ENCOUNTER 2021-06-03 11:44 | Outpatient (CLI) | payer MEDICARE, OTHER | END 2021-06-03 11:45 | disposition home or self-care (01) | LOC: LAB.S 11:44 | PROVIDERS: ATTEND Family Medicine | DX: I48.91 Unspecified atrial fibrillation (principal) | CPT/HCPCS: 36416; 85610 ==

== ENCOUNTER 2021-06-24 11:35 | Outpatient (CLI) | payer MEDICARE, OTHER | END 2021-06-24 11:36 | disposition home or self-care (01) | LOC: LAB.S 11:35 | PROVIDERS: ATTEND Family Medicine | DX: I48.91 Unspecified atrial fibrillation (principal) | CPT/HCPCS: 36416; 85610 ==

== ENCOUNTER 2021-07-13 15:53 | Outpatient (CLI) | payer MEDICARE, OTHER | END 2021-07-13 15:54 | disposition home or self-care (01) | LOC: LAB 15:53 | PROVIDERS: ATTEND Family Medicine | DX: I48.91 Unspecified atrial fibrillation (principal) | CPT/HCPCS: 36416; 85610 ==

== ENCOUNTER 2021-08-05 11:22 | Outpatient (CLI) | payer MEDICARE, OTHER | END 2021-08-05 11:23 | disposition home or self-care (01) | LOC: LAB.S 11:22 | PROVIDERS: ATTEND Family Medicine | DX: I48.91 Unspecified atrial fibrillation (principal) | CPT/HCPCS: 36416; 85610 ==

== ENCOUNTER 2021-09-10 15:48 | Outpatient (CLI) | payer MEDICARE, OTHER | END 2021-09-10 15:49 | disposition home or self-care (01) | LOC: LAB.S 15:48 | PROVIDERS: ATTEND Family Medicine | DX: I48.91 Unspecified atrial fibrillation (principal) | CPT/HCPCS: 36416; 85610 ==

== ENCOUNTER 2021-10-21 11:38 | Outpatient (CLI) | payer MEDICARE, OTHER | END 2021-10-21 11:39 | disposition home or self-care (01) | LOC: LAB.S 11:38 | PROVIDERS: ATTEND Family Medicine | DX: I48.91 Unspecified atrial fibrillation (principal) | CPT/HCPCS: 36416; 85610 ==

== ENCOUNTER 2021-10-28 12:26 | Outpatient (CLI) | payer MEDICARE, OTHER | END 2021-10-28 12:27 | disposition home or self-care (01) | LOC: LAB.S 12:26 | PROVIDERS: ATTEND Family Medicine | DX: I48.91 Unspecified atrial fibrillation (principal) | CPT/HCPCS: 36416; 85610 ==

== ENCOUNTER 2021-12-02 12:33 | Outpatient (CLI) | payer MEDICARE, OTHER | END 2021-12-02 12:34 | disposition home or self-care (01) | LOC: LAB.S 12:33 | PROVIDERS: ATTEND Family Medicine | DX: I48.91 Unspecified atrial fibrillation (principal) | CPT/HCPCS: 36416; 85610 ==

== ENCOUNTER 2021-12-30 12:44 | Outpatient (CLI) | payer MEDICARE, OTHER | END 2021-12-30 12:45 | disposition home or self-care (01) | LOC: LAB.S 12:44 | PROVIDERS: ATTEND Internal Medicine | DX: I48.91 Unspecified atrial fibrillation (principal) | CPT/HCPCS: 36416; 85610 ==

== ENCOUNTER 2022-01-06 12:58 | Outpatient (CLI) | payer MEDICARE, OTHER ==
[2022-01-06 20:13] LABS: BASOPHILS % (AUTO) 0.4 %; EOSINOPHILS # (AUTO) 0.1 10^3/uL (0.0-0.7); EOSINOPHILS % (AUTO) 1.7 %; HCT - HEMATOCRIT 40.7 % (37.0-47.0); HGB - HEMOGLOBIN 12.7 g/dL (12.0-16.0); LYMPHOCYTES % (AUTO) 18.3 %; MEAN CORPUSCULAR HEMOGLOBIN 30.6 pg (27.0-31.0); MEAN CORPUSCULAR HGB CONC 31.2 g/dL (32.0-36.0); MEAN CORPUSCULAR VOLUME 98.1 fL (81.0-99.0); MEAN PLATELET VOLUME 10.3 fL (7.9-10.8); MONOCYTES # (AUTO) 0.5 10^3/uL (0.0-1.0); MONOCYTES % (AUTO) 10.4 %; NEUTROPHILS # (AUTO) 3.6 10^3/uL (1.5-6.6); PLT - PLATELET COUNT 174 10^3/uL (130-450); RED BLOOD COUNT 4.15 10^6/uL (4.20-5.40); RED CELL DISTRIBUTION WIDTH 13.3 % (12.0-15.0); WHITE BLOOD COUNT 5.2 x10^3/uL (4.8-10.8)
[2022-01-06 20:27] LABS: ALBUMIN 4.3 g/dL (3.2-5.5); ALBUMIN/GLOBULIN RATIO 1.7 (1.0-2.2); BILIRUBIN,TOTAL 0.6 mg/dL (0.2-1.0); CALCIUM 9.4 mg/dL (8.5-10.3); CREATININE 1.2 mg/dL (0.4-1.0); POTASSIUM 4.1 mmol/L (3.5-5.0); TOTAL PROTEIN 6.9 g/dL (6.7-8.2)
== END 2022-01-06 12:59 | disposition home or self-care (01) ==
LOC: LAB.S 12:58
PROVIDERS: ATTEND Internal Medicine
DX: E03.9 Hypothyroidism, unspecified (principal); I50.32 Chronic diastolic (congestive) heart failure
CPT/HCPCS: 36415; 80053; 84443; 85025

== ENCOUNTER 2022-01-27 11:27 | Outpatient (CLI) | payer MEDICARE, OTHER | END 2022-01-27 11:28 | disposition home or self-care (01) | LOC: LAB.S 11:27 | PROVIDERS: ATTEND Internal Medicine | DX: I48.91 Unspecified atrial fibrillation (principal) | CPT/HCPCS: 36416; 85610 ==

== ENCOUNTER 2022-01-27 12:10 | Outpatient (CLI) | payer MEDICARE, OTHER ==
[2022-01-27 15:13] LABS: CALCIUM 9.6 mg/dL (8.5-10.3); CREATININE 0.9 mg/dL (0.4-1.0); POTASSIUM 4.4 mmol/L (3.5-5.0)
== END 2022-01-27 12:11 | disposition home or self-care (01) ==
LOC: LAB.S 12:10
PROVIDERS: ATTEND Registered Nurse
DX: R22.43 Localized swelling, mass and lump, lower limb, bilateral (principal); I48.91 Unspecified atrial fibrillation
CPT/HCPCS: 36415; 36416; 80048; 83880; 85610

== ENCOUNTER 2022-01-29 14:52 | Emergency (ER) | payer MEDICARE, OTHER ==
[2022-01-29 15:20] VITALS: BP 119/65
== END 2022-01-29 15:34 | disposition home or self-care (01) ==
LOC: ED 14:52
DX: R22.43 Localized swelling, mass and lump, lower limb, bilateral (principal)
CPT/HCPCS: 93970

== ENCOUNTER 2022-01-29 15:32 | Outpatient (CLI) | payer MEDICARE, OTHER ==
--- NOTE | 2022-01-29 16:38 | Ultrasound Report ---
PROCEDURE: Duplex Ext Veins Bilateral INDICATIONS: Sudden onset of bilateral lower extremity swelling/pain. TECHNIQUE: Real-time imaging, as well as color and pulse Doppler interrogation, were performed of the deep veins of both legs from the inguinal ligament to the popliteal fossa. COMPARISON: None. FINDINGS: The deep veins are normally compressible, and free of intraluminal thrombus. Color and pu lse Doppler demonstrate normal phasic intravascular flow. There is normal augmentation response to d istal compression maneuver. IMPRESSION: No DVT in lower extremities. Reviewed by: Kimberli Cardozo MD on 01/29/2022 4:37 PM PDT Approved by: Kimberli Cardozo MD on 01/29/2022 4:37 PM PDT Station ID: [id number]
== END 2022-01-29 15:33 | disposition home or self-care (01) ==
LOC: DI 15:32
PROVIDERS: ATTEND Registered Nurse
DX: R22.43 Localized swelling, mass and lump, lower limb, bilateral (principal)
CPT/HCPCS: 93970

== ENCOUNTER 2022-02-02 13:06 | Outpatient (CLI) | payer MEDICARE, OTHER ==
[2022-02-02 13:34] LABS: CALCIUM 9.6 mg/dL (8.5-10.3); CREATININE 1.3 mg/dL (0.4-1.0)
== END 2022-02-02 13:07 | disposition home or self-care (01) ==
LOC: LAB 13:06
PROVIDERS: ATTEND Internal Medicine Cardiovascular Disease
DX: I50.22 Chronic systolic (congestive) heart failure (principal); I42.8 Other cardiomyopathies
CPT/HCPCS: 36415; 80048; 83880

== ENCOUNTER 2022-03-17 11:59 | Outpatient (CLI) | payer MEDICARE, OTHER | END 2022-03-17 12:00 | disposition home or self-care (01) | LOC: LAB.S 11:59 | PROVIDERS: ATTEND Family Medicine | DX: I48.91 Unspecified atrial fibrillation (principal) | CPT/HCPCS: 36416; 85610 ==

== ENCOUNTER 2022-04-05 15:09 | Outpatient (CLI) | payer MEDICARE, OTHER | END 2022-04-05 15:10 | disposition home or self-care (01) | LOC: LAB 15:09 | PROVIDERS: ATTEND Family Medicine | DX: I48.91 Unspecified atrial fibrillation (principal) | CPT/HCPCS: 36416; 85610 ==

== ENCOUNTER 2022-04-28 11:22 | Outpatient (CLI) | payer MEDICARE, OTHER | END 2022-04-28 11:23 | disposition home or self-care (01) | LOC: LAB.S 11:22 | PROVIDERS: ATTEND Family Medicine | DX: I48.91 Unspecified atrial fibrillation (principal) | CPT/HCPCS: 36416; 85610 ==

== ENCOUNTER 2022-06-04 08:00 | Outpatient (CLI) | payer MEDICARE, OTHER ==
[2022-06-04 12:24] LABS: CALCIUM 9.3 mg/dL (8.5-10.3); POTASSIUM 4.4 mmol/L (3.5-5.0)
== END 2022-06-04 23:59 | disposition home or self-care (01) ==
LOC: LAB 08:00
PROVIDERS: ATTEND Nurse Practitioner
DX: I50.22 Chronic systolic (congestive) heart failure (principal); I42.8 Other cardiomyopathies
CPT/HCPCS: 36415; 80048; 83880

== ENCOUNTER 2022-06-16 12:52 | Outpatient (CLI) | payer MEDICARE, OTHER | END 2022-06-16 12:53 | disposition home or self-care (01) | LOC: LAB.S 12:52 | PROVIDERS: ATTEND Family Medicine | DX: I48.91 Unspecified atrial fibrillation (principal) | CPT/HCPCS: 36416; 85610 ==

== ENCOUNTER 2022-06-23 08:00 | Outpatient (CLI) | payer MEDICARE, OTHER ==
[2022-06-23 13:29] LABS: CALCIUM 9.2 mg/dL (8.5-10.3); CREATININE 1.1 mg/dL (0.4-1.0); POTASSIUM 3.7 mmol/L (3.5-5.0)
== END 2022-06-23 23:59 | disposition home or self-care (01) ==
LOC: LAB 08:00
PROVIDERS: ATTEND Internal Medicine Cardiovascular Disease
DX: I50.22 Chronic systolic (congestive) heart failure (principal); R06.02 Shortness of breath
CPT/HCPCS: 36415; 80048; 81599; 83880

== ENCOUNTER 2022-07-23 07:00 | Outpatient (CLI) | payer MEDICARE, OTHER ==
--- NOTE | 2022-07-23 11:09 | XRAY Report ---
PROCEDURE: Wrist 3 View RT INDICATIONS: RIGHT ARM PAIN TECHNIQUE: 3 views of the wrist were acquired. COMPARISON: Right forearm radiographs also performed today. FINDINGS: Bones: No fractures or dislocations. Severe degenerative change at the first CMC joint. No suspicio us bony lesions. Soft tissues: No suspicious soft tissue calcifications. Arterial vascular calcifications. Chondroca lcinosis at the DRUJ. IMPRESSION: No acute osseous abnormality. 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 Chondrocalcinosis. Reviewed by: Zeus Spicer MD on 07/23/2022 11:07 AM [facility] Approved by: Zeus Spicer MD on 07/23/2022 11:07 AM [facility] Station ID: [id number]
--- NOTE | 2022-07-23 16:07 | XRAY Report ---
PROCEDURE: Forearm RT INDICATIONS: RIGHT FOREARM PAIN TECHNIQUE: 2 views of the forearm were acquired. COMPARISON: None FINDINGS: Bones: No fractures or dislocations. Mildly decreased mineralization. No suspicious bony lesions. Soft tissues: There is moderate to heavy atherosclerotic arterial calcification. Chondrocalcinosis pr esent in the triangular fibrocartilage region. IMPRESSION: 1. No suspicious fractures or bone lesions. 2. Moderate to heavy arterial calcification. Reviewed by: Yulia Milton MD on 07/23/2022 4:06 PM PST Approved by: Yulia Milton MD on 07/23/2022 4:06 PM PST Station ID: [id number]
== END 2022-07-23 23:59 | disposition home or self-care (01) ==
LOC: DI.S 07:00
PROVIDERS: ATTEND Registered Nurse
DX: M18.11 Unilateral primary osteoarthritis of first carpometacarpal joint, right hand (principal); M11.231 Other chondrocalcinosis, right wrist; I70.208 Unspecified atherosclerosis of native arteries of extremities, other extremity

== ENCOUNTER 2022-07-30 11:37 | Outpatient (CLI) | payer MEDICARE, OTHER ==
--- NOTE | 2022-07-30 13:38 | Ultrasound Report ---
PROCEDURE: Ext Limited Non Vascular INDICATIONS: RIGHT ARM PAIN TECHNIQUE: Real-time scanning was performed of the right arm, with image documentation. COMPARISON: None. FINDINGS: No abnormality within the right forearm. No focal fluid collection or architectural distor tion. No mass lesion. IMPRESSION: No abnormality identified. Reviewed by: Keesha Martin MD on 07/30/2022 1:36 PM PST Approved by: Keesha Martin MD on 07/30/2022 1:36 PM [facility] Station ID: [id number]
== END 2022-07-30 11:38 | disposition home or self-care (01) ==
LOC: DI 11:37
PROVIDERS: ATTEND Registered Nurse
DX: M79.601 Pain in right arm (principal); R22.31 Localized swelling, mass and lump, right upper limb; I48.91 Unspecified atrial fibrillation
CPT/HCPCS: 36415; 36416; 85610

== ENCOUNTER 2022-07-30 13:19 | Outpatient (CLI) | payer MEDICARE, OTHER | END 2022-07-30 13:20 | disposition home or self-care (01) | LOC: LAB.S 13:19 | PROVIDERS: ATTEND Family Medicine | DX: I48.91 Unspecified atrial fibrillation (principal) | CPT/HCPCS: 36415; 36416; 85610 ==

== ENCOUNTER 2022-08-01 11:43 | Inpatient (IN) | payer MEDICARE, OTHER ==
[2022-08-01] MEDS ORDERED: oxyCODONE 5 MG TABLET PO STA (12:19)
--- NOTE | 2022-08-01 12:20 | ED Physician Documentation ---
History of Present Illness - Stated complaint Stated Complaint: RT LEG/SHOULDER PX - Chief complaint Chief Complaint: Ext Problem - Additonal information Additional information: 87-year-old female presents to the emergency department for evaluation of 3 days right hip pain. Denies any falls or trauma but now unable to find a position of comfort or ambulate. She lives at [facility] with her . Her daughter reports that her mom has a history of chronic kidney disease now resulting in a renal failure. Also has a history of congestive heart failure as well as a pacer in place. She does present some of her medication list include Coumadin, Entresto, Lasix, statin, levothyroxine Much of the history is provided by the daughter who has her mother's old medical records. She is followed by [place] capacity planning manager. Review of Systems Constitutional: denies: Fever, Chills Cardiac: reports: Pedal edema. denies: Chest pain / pressure, Palpitations Respiratory: denies: Dyspnea, Cough GI: reports: Reviewed and negative : reports: Reviewed and negative Musculoskeletal: reports: Joint pain PD PAST MEDICAL HISTORY - Past Medical History Cardiovascular: Hypertension, High cholesterol, Atrial fibrillation, Other Respiratory: None Endocrine/Autoimmune: HyPOthyroidism GI: None POCKET SETTER: None : None HEENT: None Psych: None Musculoskeletal: Osteoarthritis Derm: Herpes zoster - Past Surgical History Past Surgical History: Yes General: Other /POCKET SETTER: Hysterectomy - Present Medications Home Medications: Ambulatory Orders Medication Instructions Recorded Confirmed Alendronate Sodium 10 mg PO DAILY 04/04/15 05/05/16 Levothyroxine Sodium 50 mcg PO .WEEKLY 04/04/15 05/05/16 Simvastatin 40 mg PO QPM 04/04/15 05/05/16 Spironolactone 25 mg PO DAILY 04/04/15 05/05/16 Warfarin [Coumadin] 2 PO DAILYWM 04/04/15 04/17/15 Furosemide 20 mg PO DAILY 04/06/15 05/05/16 Warfarin [Coumadin] 5 mg PO DAILY PM 04/21/16 05/05/16 Sacubitril/Valsartan [Entresto 24 1 tab PO DAILY 08/01/22 08/01/22 mg-26 mg Tablet] - Allergies Allergies/Adverse Reactions: Allergies Allergy/AdvReac Type Severity Reaction Status Date / Time Sulfa (Sulfonamide Allergy Unknown Verified 08/01/22 11:58 Antibiotics) - Social History Does the pt smoke?: No Smoking Status: Former smoker Does the pt drink ETOH?: No Does the pt have substance abuse?: No - Immunizations Immunizations are current?: Yes PD ED PE EXPANDED - General General: In Pain, Other (Geriatric appearance) - Cardiac Cardiac: Irregularly irregular, Murmur Present, Radial strong equal, Cap refill < 2 sec. No: Pedal strong equal (1+ pedal) - Respiratory Respiratory: Clear to ausultation jelena. No: Distress, Labored - Abdomen Abdomen: Normal Bowel sounds. No: Tender to palpation - Extremities Extremities: Right hip (No swelling or ecchymosis. Tenderness with palpation of the proximal trochanter. Patient limits movement actively but allows passive internal and external rotation. No Malrotation or shortening) Results - Vitals Vitals: Vital Signs - 24 hr 08/01/22 08/01/22 11:55 14:00 Temperature 36.1 C L Heart Rate 127 H 137 H Respiratory 14 33 H Rate Blood Pressure 95/60 114/92 H O2 Saturation 100 94 Oxygen O2 Source Room air - EKG (time done) 1239 Rate: Rate (enter#) (90) Rhythm: Atrial fibrillation, Paced (a fib/paced) - Labs Labs: Laboratory Tests 08/01/22 08/01/22 08/01/22 12:27 12:27 13:29 WBC 7.9 RBC 2.98 L Hgb 9.0 L Hct 29.2 L MCV 98.0 MCH 30.2 MCHC 30.8 L RDW 15.0 Plt Count 195 MPV 9.6 Neut # (Auto) 6.9 H Lymph # (Auto) 0.5 L Millard # (Auto) 0.5 Eos # (Auto) 0.0 Baso # (Auto) 0.0 Absolute Nucleated RBC 0.00 Nucleated RBC % 0.0 PT > 120.0 H* INR > 10.0 H* Sodium 137 Potassium 3.7 Chloride 95 L Carbon Dioxide 28 Anion Gap 14.0 H BUN 36 H Creatinine 1.8 H Estimated GFR (MDRD) 27 L Glucose 129 H Calcium 9.1 - Rads (name of study) pelvic CT Radiology: Final report received (Osteoarthritis throughout the bony pelvis. No evidence of avascular necrosis of femoral head. Large right iliac is intramuscular hematoma. No pelvic free fluid or free air. No abnormal calcifications) PD Medical Decision Making - ED course Complexity details: reviewed results, re-evaluated patient, considered differential, d/w patient, d/w family ED course: This is an 87-year-old female who does have a history of atrial fibrillation, known valvular disease who presents to the emergency department for evaluation of 3 days acute right hip pain. She denies falls or trauma though she does reside at [facility] with her . On presentation she has pain with any weightbearing in the right hip. There is no obvious hematoma or bruising. She allows limited active movement but passive internal and external rotation are preserved. Given her age and uncertain history if there have been falls we did proceed to do a CT of the pelvic region that showed no fractures though there is extensive osteoarthritis. However we do have findings of a very large hematoma with in the muscle body of this region. Here in the emergency department we did obtain a CBC that shows a marked anemia with a hemoglobin of 9 which is a marked decrease from most recent labs on value. We also did a PT/INR and note that she has a supratherapeutic INR greater than 10. While here in the emergency department she has occasionally had some soft blood pressures. Her heart rate has vacillated between rapid A. fib RVR with a heart rate of 140-150 to down into the 90s. Initially I had given the patient 25 mg of metoprolol orally And when her heart rate failed to resolve I was going to give her an IV dose of diltiazem however nursing staff notified me that her heart rate had decreased So the diltiazem was held. With this finding of anemia, bleeding within the gluteal muscle with an unknown history of trauma or fall I did discuss this case briefly with our on-call orthopedic surgeon. He felt that there was no treatment from the orthopedic standpoint that would be necessary. However given the bleeding and supratherape utic INR Kcentra was ordered as well as subcutaneous vitamin K. The patient will be admitted to the hospital for further evaluation and management of her anemia, bleeding atrial fibrillation and supratherapeutic INR. I have spoken with Dr. Pringle our hospitalist who agrees to bring the patient in for further evaluation and treatment Departure - Departure Disposition: 66 [facility] DC/Xfer Clinical Impression: Supratherapeutic INR, Hematoma, Acute right hip pain, Atrial fibrillation with RVR Discharge Date/Time: 08/01/22 15:27
--- OUTSIDE RECORDS SUMMARY | 2022-08-01 12:20 | EXTERNAL MEDICAL SUMMARY RPT | Continuity of Care Document ---
:1935 Author Organization [facility] Address [address] [place] [address] Phone Care Team Providers Name Role Phone Unavailable Unavailable Unavailable Shannon Altman Robert Unavailable Unavailable Taras Patient Registrar, Magdalena Unavailable Unav ailable Allergies No information. Encounters No information. Functional Status No information. Immunizations No information. Medications date description facility 2022-07-24 00:00 [facility]ubitril[facility] 2022-07-26 00:00 sacubitril-valsartan [facility] 2022-07-30 00:00 sacubitril-valsartan [facility] 2022-07-24 00:00 [facility]urosemide [facility] 2022-07-26 00:00 furosemide [facility] 2022-07-30 00:00 furosemide [facility] 2022-07-24 00:00 levothyroxine [facility] 2022-07-26 00:00 [facility]othyroxine [facility] 2022-07-30 00:00 [facility]othyroxine [facility] 2022-07-24 00:00 [facility]othyroxine [facility] 2022-07-26 00:00 [facility]othyroxine [facility] 2022-07-30 00:00 levothyroxine [facility] 2022-07-24 00:00 sacubitril-valsartan [facility] 2022-07-26 00:00 sacubitril-valsartan [facility] 2022-07-30 00:00 sacubitril-valsartan [facility] 2022-07-24 00:00 sacubitril-valsartan [facility] 2022-07-26 00:00 sacubitril-valsartan [facility] 2022-07-30 00:00 sacubitril-valsartan [facility] 2022-07-24 00:00 warfarin [facility] 2022-07-26 00:00 warfarin [facility] 2022-07-30 00:00 warfarin [facility] 2022-07-24 00:00 levothyroxine [facility] 2022-07-26 00:00 levothyroxine [facility] 2022-07-30 00:00 levothyroxine [facility] 2022-07-24 00:00 furosemide [facility] 2022-07-26 00:00 furosemide [facility] 2022-07-30 00:00 furosemide [facility] 2022-07-24 00:00 carvedilol [facility] 2022-07-26 00:00 carvedilol [facility] 2022-07-30 00:00 carvedilol [facility] 2022-07-24 00:00 furosemide [facility] 2022-07-26 00:00 furosemide [facility] 2022-07-30 00:00 furosemide [facility] 2022-07-24 00:00 rosuvastatin [facility] 2022-07-26 00:00 rosuvastatin [facility] 2022-07-30 00:00 rosuvastatin [facility] 2022-07-24 00:00 sacubitril-valsartan [facility] 2022-07-26 00:00 sacubitril-valsartan [facility] 2022-07-30 00:00 sacubitril-valsartan [facility] 2022-07-24 00:00 carvedilol [facility] 2022-07-26 00:00 carvedilol [facility] 2022-07-30 00:00 carvedilol [facility] 2022-07-24 00:00 donepezil [facility] 2022-07-26 00:00 donepezil [facility] 2022-07-30 00:00 donepezil [facility] 2022-07-24 00:00 warfarin [facility] 2022-07-26 00:00 warfarin [facility] 2022-07-30 00:00 warfarin [facility] 2022-07-24 00:00 donepezil [facility] 2022-07-26 00:00 donepezil [facility] 2022-07-30 00:00 donepezil [facility] 2022-07-24 00:00 donepezil [facility] 2022-07-26 00:00 donepezil [facility] 2022-07-30 00:00 donepezil [facility] 2022-07-24 00:00 carvedilol [facility] 2022-07-26 00:00 carvedilol [facility] 2022-07-30 00:00 carvedilol [facility] 2022-07-24 00:00 rosuvastatin [facility] 2022-07-26 00:00 rosuvastatin [facility] 2022-07-30 00:00 rosuvastatin [facility] 2022-07-24 00:00 carvedilol [facility] 2022-07-26 00:00 carvedilol [facility] 2022-07-30 00:00 carvedilol [facility] 2022-07-24 00:00 rosuvastatin [facility] 2022-07-26 00:00 rosuvastatin [facility] 2022-07-30 00:00 rosuvastatin [facility] 2022-07-24 00:00 warfarin [facility] 2022-07-26 00:00 warfarin [facility] 2022-07-30 00:00 warfarin [facility] 2022-07-24 00:00 warfarin [facility] 2022-07-26 00:00 warfarin [facility] 2022-07-30 00:00 warfarin [facility] 2022-07-24 00:00 rosuvastatin [facility] 2022-07-26 00:00 rosuvastatin [facility] 2022-07-30 00:00 rosuvastatin [facility] 2022-07-24 00:00 furosemide [facility] 2022-07-26 00:00 furosemide [facility] 2022-07-30 00:00 furosemide [facility] 2022-07-24 00:00 levothyroxine [facility] 2022-07-26 00:00 levothyroxine [facility] 2022-07-30 00:00 levothyroxine [facility] 2022-07-24 00:00 donepezil [facility] 2022-07-26 00:00 donepezil [facility] 2022-07-30 00:00 donepezil [facility] Problems date description facility 2022-07-23 00:00 Pain in limb [facility] 2022-07-23 00:00 Pain in limb [facility] 2022-07-23 00:00 Pain in right arm [facility] 2022-07-23 00:00 Pain in right arm [facility] Procedures date description facility 2022-07-23 00:00 Visit Code Hold [facility] 2022-07-23 00:00 Visit Code Hold [facility] Results/Labs No information. Social History date description facility 2022-07-23 00:00 Former smoker [facility] 2022-07-23 00:00 Former smoker [facility] [place] Vital Signs date measurement value units 2022-07-23 00:00 BMI 18.78 kg/m2 2022-07-23 00:00 BP_diastolic 79 mmHg 2022-07-23 00:00 BP_systolic 122 mmHg 2022-07-23 00:00 heart_rate 82 /min 2022-07-23 00:00 height_metric 162.56 cm 2022-07-23 00:00 height_standard 64 in 2022-07-23 00:00 respiration_rate 14 /min 2022-07-23 00:00 temperature_metric 36.17 C 2022-07-23 00:00 temperature_standard 97.1 F 2022-07-23 00:00 weight_metric 49.44 kg 2022-07-23 00:00 weight_standard 109 lb
[2022-08-01 12:35] LABS: BASOPHILS % (AUTO) 0.1 %; EOSINOPHILS % (AUTO) 0.1 %; HCT - HEMATOCRIT 29.2 % (37.0-47.0); LYMPHOCYTES # (AUTO) 0.5 10^3/uL (1.5-3.5); MEAN CORPUSCULAR HEMOGLOBIN 30.2 pg (27.0-31.0); MEAN CORPUSCULAR HGB CONC 30.8 g/dL (32.0-36.0); MEAN PLATELET VOLUME 9.6 fL (7.9-10.8); MONOCYTES # (AUTO) 0.5 10^3/uL (0.0-1.0); MONOCYTES % (AUTO) 5.8 %; NEUTROPHILS # (AUTO) 6.9 10^3/uL (1.5-6.6); NEUTROPHILS % (AUTO) 87.5 %; PLT - PLATELET COUNT 195 10^3/uL (130-450); RED BLOOD COUNT 2.98 10^6/uL (4.20-5.40); WHITE BLOOD COUNT 7.9 x10^3/uL (4.8-10.8)
[2022-08-01 12:50] LABS: CALCIUM 9.1 mg/dL (8.5-10.3); CREATININE 1.8 mg/dL (0.4-1.0); POTASSIUM 3.7 mmol/L (3.5-5.0)
--- NOTE | 2022-08-01 13:45 | CT Report ---
PROCEDURE: PELVIS WO INDICATIONS: right hip pain; unable to ambulate TECHNIQUE: Noncontrast 3 mm axial sections acquired through the bony pelvis, with coronal and sagittal reformatt ing. For radiation dose reduction, the following was used: automated exposure control, adjustment of mA and/or kV according to patient size. COMPARISON: None. FINDINGS: Image quality: Excellent. Bones: Pelvic ring is intact. No acute pelvic or hip fracture. Moderate bilateral hip joint osteoart hritic changes are seen with joint space narrowing, subchondral sclerosis and prominent marginal oste ophyte formation. No evidence of avascular necrosis of femoral heads. Osteoarthritic changes also see n in bilateral sacroiliac joints and symphysis pubis. No ankylosis or bony erosion. Degenerative disc disease in visualized lower lumbar spine is seen. Soft tissues: Asymmetric enlarged right iliacus muscle is seen with increased heterogeneous density consistent with large intramuscular hematoma. No abnormal soft tissue calcifications. No peritoneal f ree fluid of free air. Bowel wall thickness is normal. Bladder wall thickness is normal. IMPRESSION: 1. No acute pelvic or hip fracture. No hip dislocation. Osteoarthritis throughout the bony pelvis. No evidence of avascular necrosis of femoral head. 2. Large right iliacus intramuscular hematoma. No pelvic free fluid or free air. No abnormal calcific ations. Reviewed by: Reid Jha MD on 08/01/2022 1:44 PM PST Approved by: Reid Jha MD on 08/01/2022 1:44 PM PST Station ID: [id number]
[2022-08-01] MEDS ORDERED: METOPROLOL TARTRATE 50 MG TABLET PO STA (13:49)
[2022-08-01 13:54] LABS: INR > 10.0 (0.8-1.2); PT - PROTHROMBIN TIME > 120.0 secs (9.9-12.6)
[2022-08-01] MEDS ORDERED: PROTHROMBIN COMPLEX CONC 500 UNIT VIAL IVP STA (14:22)
[2022-08-01] MEDS ORDERED: PHYTONADIONE 10 MG/ML AMP IVP STA (14:22)
[2022-08-01] MEDS ORDERED: diltiaZEM INJ 5 MG/ML VIAL IVP STA (14:23)
[2022-08-01] MEDS ORDERED: ONDANSETRON ODT 4 MG TABLET TL PRN (14:24)
[2022-08-01] MEDS ORDERED: oxyCODONE 5 MG TABLET PO PRN (14:24)
[2022-08-01] MEDS ORDERED: SODIUM CHLORIDE FLUSH 0.9% 10 ML SYRINGE IVP PRN (14:24)
[2022-08-01] MEDS ORDERED: MORPHINE 2 MG/ML CARPUJECT IVP PRN (14:24)
[2022-08-01] MEDS ORDERED: ONDANSETRON 4 MG/2 ML VIAL IVP PRN (14:24)
[2022-08-01] MEDS ORDERED: PHYTONADIONE INJ (ADULT) 10 MG in SODIUM CHLORIDE 0.9% 50 ML IV STA (14:36)
[2022-08-01] MEDS ORDERED: PHYTONADIONE 10 MG/ML AMP SUBQ STA (14:45)
--- NOTE | 2022-08-01 14:45 | HISTORY & PHYSICAL EXAMINATION ---
Chief Complaint - Chief Complaint Chief Complaint: hip pain History of Present Illness - Admitted From Admitted From:: ED - History Obtained From Records Reviewed: electronic chart History obtained from: patient and chart Exam Limitations: pt forgetful - History of Present Illness HPI Comment/Other: Ophelia George is a 87 yo female with PMH CHF, CAD with receovered EF, hypothyroidism, Afib not on BB on warfarin for anticoagulation, moderate , pulmonary HTN, dual chamber pacemaker placed in 2014, s/p elective cardioversion 2018, HTN, HLD, CKD stage III. Presented to ED for hip pain for [address] of pelvis found large right iliacus intramuscular hematoma. INR 10, PT 120. HR 137, 114/92. She is being admitted for R iliacus intramuscular hematoma and warfarin reversal. I encounter Ophelia lying in bed. She is a frail elderly woman who brightens when I approach. She is a poor historian and lacks insight into her medical conditions. She lives at [facility] with her , over the last week she began noticing bruising on her arms and had pain in her R hip. She went to her coumadin clinic who had her get and ultrasound, she is unsure of why, and then told her to come here. She is uncertain of her medications stating, "my daughter puts them in baggies and I just take the bag on the right day." History - Past Medical History Cardiovascular: reports: Congestive heart failure, Hypertension, High cholesterol, Atrial fibrillation, Other Respiratory: reports: None Endocrine/Autoimmune: reports: HyPOthyroidism GI: reports: None REVIEWER SALES: reports: None : reports: None HEENT: reports: None Psych: reports: None Musculoskeletal: reports: Osteoarthritis Derm: reports: Herpes zoster MRSA Hx?: No - Past Surgical History General: reports: Appendectomy (when she was young), Other (elective cardioversion 2018) /REVIEWER SALES: reports: Hysterectomy, Other (1 miscarrage ) Cardiovascular: reports: Coronary stent (a note mentions successful PCI in 2019), Cardiac catheterization Other past surgical history: tonsilectomy as child - Family & Social History Family History: Mother: , Father: Family History Comment/Other: Mother, father, three sisters all , 1 brother living Living arrangement: Assisted living Living Situation: With spouse/s.o. - Substance History Use: Uses substance without health or social issues: Tobacco (smoked for about 6 years around college, estimated 1/2 pack per day ), Alcohol (drinks a couple of beers a week ) - POLST POLST Status: other (forgetful, she may have a polst at [facility]) Meds/Allgy - Home Medications Home Medications: Ambulatory Orders Medication Instructions Recorded Confirmed Alendronate Sodium 10 mg PO DAILY 04/04/15 05/05/16 Levothyroxine Sodium 50 mcg PO .WEEKLY 04/04/15 05/05/16 Simvastatin 40 mg PO QPM 04/04/15 05/05/16 Spironolactone 25 mg PO DAILY 04/04/15 05/05/16 Warfarin [Coumadin] 2 PO DAILYWM 04/04/15 04/17/15 Furosemide 20 mg PO DAILY 04/06/15 05/05/16 Warfarin [Coumadin] 5 mg PO DAILY PM 04/21/16 05/05/16 Sacubitril/Valsartan [Entresto 24 1 tab PO DAILY 08/01/22 08/01/22 mg-26 mg Tablet] - Allergies Allergies/Adverse Reactions: Allergies Allergy/AdvReac Type Severity Reaction Status Date / Time Sulfa (Sulfonamide Allergy Unknown Verified 08/01/22 11:58 Antibiotics) Review of Systems - Constitutional Constitutional: reports: Fatigue, Weakness - Eyes Eyes: reports: Pain, Dipolpia - Cardiovascular Cariovascular: reports: Irregular heart rate - Respiratory Respiratory: reports: SOB with exertion - Gastrointestinal Gastrointestinal: reports: Black stools - Musculoskeletal Musculoskeletal: reports: Muscle pain, Joint swelling (bilateral knees) - Integumentary Integumentary: reports: Pruritis (bilateral legs) - All Other Systems All Other Systems: reports: Reviewed and negative Prior Level of Functionality: Ophelia reports she gets up and walks on her own without a walker. Her is wheelchair bound and they have all of their meals prepared for htme by the staff at [facility]. Her daughter manages her medications and takes her to appointments. Exam - Vital Signs Vital Signs: Vital Signs x48h Temp Pulse Resp BP Pulse Ox 08/01/22 14:00 137 H 33 H 114/92 H 94 08/01/22 11:55 36.1 C L 127 H 14 95/60 100 - Physical Exam General Appearance: positive: No acute distress (a frail elderly appearing woman lying in bed, extensive ecchymosis of her L arm.) Eyes Bilateral: positive: Normal inspection ENT: positive: ENT inspection nml Neck: positive: Nml inspection Respiratory: positive: Chest non-tender, Breath sounds nml Cardiovascular: positive: Irregularly irregular, Systolic murmur (heart up into the carotids) Peripheral Pulses: positive: 1+ Abdomen: positive: Non-tender, Nml bowel sounds Rectal: positive: Black stool (by pt report) Back: positive: Nml inspection Skin: positive: No rash, Warm, Dry Extremities: positive: Joint swelling (bilateral knees) Conclusion/Plan - Problem List (1) Acute anemia Conclusion/Plan: H&H trending down since admission. Acute blood loss anemia. H&H 7.7/24.9 now. Plan: type and screen, recheck CBC in am (2) Hematoma Conclusion/Plan: R iliacus hematoma seen on CT, extensive ecchymosis on upper extremities. Pt denies knew medication, falls, or infections. Suspect this is all due to an out of control INR. Plan: repeat CBC tonight and with morning labs, reverse coumadin (3) Supratherapeutic INR Conclusion/Plan: INR 10, Pt states her daughter Siri manages her medications. Plan: Vitamin K, follow up with daughter on pt medications (4) Atrial fibrillation with RVR Conclusion/Plan: known Afib, on coumadin, no beta richi listed on home meds, Plan: hold anticoagulation, until supratherapeutic INR resolved (5) Hypertension Conclusion/Plan: history of HTN, normotensive to hypotensive on this admission Plan: hold diuretics, hold entresto, Qualifiers: Hypertension type: primary hypertension Qualified Code(s): I10 - Essential (primary) hypertension (6) Congestive heart failure (CHF) Conclusion/Plan: EF at one point was less than 35-40%. Most recent ECHO 02/19/21 shows R heart strain. Left ventricular EF normal now, Dr. Hammond reports a recovered EF with goal directed therapy in his note 02/24/21. Normal to hypotensive now and tachycardic, in the setting of acute blood loss anemia due to hematoma. Plan: Will hold diuretics for now, will plan to transfuse if H&H drops further. Will restart diuretics tomorrow if BP and HR stable. Qualifiers: Heart failure type: right-sided (7) Hypothyroidism Conclusion/Plan: has hypothyroidism, on replacement. Plan: continue home meds Qualifiers: Hypothyroidism type: unspecified Qualified Code(s): E03.9 - Hypothyroidism, unspecified - Lab Results Lab results reviewed: Yes Fish Bones: 08/01/22 17:28 08/01/22 12:27 - Diagnostic Imaging Results Diagnostic Imaging Results: positive: Final report reviewed Diagnostic Imaging Results Comments: CT pelvis 08/01/22 Impression: 1. No acute pelvic or hip fracture. No hip dislocation. Osteoarthritis throughout the bony pelvis. No evidence of avascular necrosis of femoral head. 2. Large right iliacus intramuscular hematoma. No pelvic free fluid or free air. No abnormal calcifications. ECHO 02/19/21 Left ventricle: left vventricular size is normal. Left ventricular wall thickness is normal. Overall left ventricular systolic function is normal iwth an EF 60-65% Pseudonormal LV filling pattern consistent with grade II diastolic dysfunction. No regional wall motion abnormalities are seen. As compared to the prior echo, left ventricular systolic function has improved. Right ventricle: The right ventricle is normal in size and fucntion. Pacemaker leads seen in the right atrium and right ventricle. Left atrium: sever increase in the left atrial volume index. Right Atrium: severe right atrial enlargement. Aortic valve: Trileaflet. Moderate aortic stenosis. - EKG Results EKG Interpreted Independently: Yes EKG Findings: Afib, HR is less than 100 Core Measures - DVT/VTE - Prophylaxis VTE/DVT Device ordered at admit?: No Not Ordered - Medical Reason: Contraindicated (supratherapeutic INR)
[2022-08-01] MEDS ORDERED: SODIUM CHLORIDE 0.9% 1,000 ML IV SCH (15:00)
[2022-08-01 15:34] LABS: B. PARAPERTUSSIS- RESP PCR PAN NOT DETECTED; B. PERTUSSIS- RESP PCR PANEL NOT DETECTED; C. PNEUMONIAE- RESP PCR PANEL NOT DETECTED; CORONAVIRUS 229E-RESP PCR NOT DETECTED; CORONAVIRUS HKU1-RESP PCR NOT DETECTED; CORONAVIRUS NL63-RESP PCR NOT DETECTED; CORONAVIRUS OC43-RESP PCR NOT DETECTED; HUMAN METAPNEUMOVIRUS NOT DETECTED; INFLUENZA A- RESP PCR PANEL NOT DETECTED; INFLUENZA B - RESP PCR PANEL NOT DETECTED; M. PNEUMONIAE- RESP PCR PANEL NOT DETECTED; PARAINFLUENZA VIRUS 1 NOT DETECTED; PARAINFLUENZA VIRUS 2 NOT DETECTED; PARAINFLUENZA VIRUS 3 NOT DETECTED; PARAINFLUENZA VIRUS 4 NOT DETECTED; RHINOVIRUS/ENTEROVIRUS NOT DETECTED; RSV- RESP PCR PANEL NOT DETECTED; SARS-CoV-2 -RESP PCR PANEL NOT DETECTED
[2022-08-01] MEDS: SODIUM CHLORIDE FLUSH 0.9% 10 ML SYRINGE IVP SCH (15:45)
[2022-08-01] MEDS: ACETAMINOPHEN 325 MG TABLET PO PRN (15:52)
[2022-08-01 17:39] LABS: HCT - HEMATOCRIT 24.9 % (37.0-47.0); HGB - HEMOGLOBIN 7.7 g/dL (12.0-16.0); MEAN CORPUSCULAR HEMOGLOBIN 30.4 pg (27.0-31.0); MEAN CORPUSCULAR HGB CONC 30.9 g/dL (32.0-36.0); MEAN CORPUSCULAR VOLUME 98.4 fL (81.0-99.0); MEAN PLATELET VOLUME 9.8 fL (7.9-10.8); RED BLOOD COUNT 2.53 10^6/uL (4.20-5.40); WHITE BLOOD COUNT 7.7 x10^3/uL (4.8-10.8)
[2022-08-01] MEDS: METOPROLOL TARTRATE 25 MG TABLET PO SCH (21:25)
[2022-08-01 23:41] LABS: HGB - HEMOGLOBIN 7.4 g/dL (12.0-16.0); MEAN CORPUSCULAR HEMOGLOBIN 30.6 pg (27.0-31.0); MEAN CORPUSCULAR HGB CONC 30.8 g/dL (32.0-36.0); MEAN CORPUSCULAR VOLUME 99.2 fL (81.0-99.0); MEAN PLATELET VOLUME 9.9 fL (7.9-10.8); RED BLOOD COUNT 2.42 10^6/uL (4.20-5.40); RED CELL DISTRIBUTION WIDTH 14.9 % (12.0-15.0); WHITE BLOOD COUNT 7.6 x10^3/uL (4.8-10.8)
[2022-08-02] MEDS ORDERED: SODIUM CHLORIDE 0.9% 500 ML IV ONE (00:12)
[2022-08-02] MEDS: SODIUM CHLORIDE FLUSH 0.9% 10 ML SYRINGE IVP SCH ×3 (01:07→16:59)
[2022-08-02 06:24] LABS: BASOPHILS % (AUTO) 0.3 %; EOSINOPHILS % (AUTO) 0.6 %; HCT - HEMATOCRIT 25.9 % (37.0-47.0); LYMPHOCYTES # (AUTO) 1.2 10^3/uL (1.5-3.5); LYMPHOCYTES % (AUTO) 17.8 %; MEAN CORPUSCULAR HEMOGLOBIN 30.9 pg (27.0-31.0); MEAN CORPUSCULAR HGB CONC 30.9 g/dL (32.0-36.0); MEAN PLATELET VOLUME 9.9 fL (7.9-10.8); MONOCYTES # (AUTO) 0.5 10^3/uL (0.0-1.0); MONOCYTES % (AUTO) 7.2 %; NEUTROPHILS # (AUTO) 5.2 10^3/uL (1.5-6.6); NEUTROPHILS % (AUTO) 73.8 %; PLT - PLATELET COUNT 172 10^3/uL (130-450); RED BLOOD COUNT 2.59 10^6/uL (4.20-5.40); RED CELL DISTRIBUTION WIDTH 15.3 % (12.0-15.0)
[2022-08-02 06:27] LABS: INR 1.9 (0.8-1.2); PT - PROTHROMBIN TIME 20.2 secs (9.9-12.6)
[2022-08-02 06:36] LABS: CALCIUM 8.8 mg/dL (8.5-10.3); CREATININE 1.4 mg/dL (0.4-1.0); POTASSIUM 4.1 mmol/L (3.5-5.0)
[2022-08-02] MEDS: LEVOTHYROXINE 75 MCG TABLET PO SCH (07:07)
--- NOTE | 2022-08-02 07:38 | PROVIDER PROGRESS NOTE ---
Subjective - Prog Note Date Prog Note Date: 08/02/22 Prog Note Time: 07:37 - Subjective Subjective: 87 yo female with PMH CHF, CAD with receovered EF, hypothyroidism, Afib not on BB on warfarin for anticoagulation, moderate , pulmonary HTN, dual chamber pacemaker placed in 2014, s/p elective cardioversion 2017, HTN, HLD, CKD stage III, admitted for R iliacus intramuscular hematoma and warfarin reversal. I encounter Ophelia sitting up in her chair with her daughter sitting beside her. She endorses weakness in her R lower extremity but other than that she is doing well. Ate a good dinner last night. I discussed her high INR with her and her daughter and they are certain she has been taking her medications as prescribed. CTA came back with no active hemorrhage or extravasation. Current Medications - Current Medications Current Medications: Acetaminophen (Acetaminophen 325 Mg Tablet) 650 mg PO Q4HR PRN PRN Reason: Pain 1 to 4, or Fever Last Admin: 08/01/22 15:52 Dose: 650 mg Levothyroxine Sodium (Levothyroxine 75 Mcg Tablet) 75 mcg PO QDAC [facility] Last Admin: 08/02/22 07:07 Dose: 75 mcg Metoprolol Tartrate (Metoprolol Tartrate 25 Mg Tablet) 12.5 mg PO BID [facility] Last Admin: 08/01/22 21:25 Dose: 12.5 mg Morphine Sulfate (Morphine 2 Mg/Ml Carpuject) 2 mg IVP Q2HR PRN PRN Reason: Pain 8 to 10 Ondansetron HCl (Ondansetron Odt 4 Mg Tablet) 4 mg TL Q6HR PRN PRN Reason: Nausea / Vomiting Ondansetron HCl (Ondansetron 4 Mg/2 Ml Vial) 4 mg IVP Q6HR PRN PRN Reason: Nausea / Vomiting Oxycodone HCl (Oxycodone 5 Mg Tablet) 5 mg PO Q4HR PRN PRN Reason: Pain 5 to 7 Last Admin: 08/01/22 22:24 Dose: 5 mg Sodium Chloride (Sodium Chloride Flush 0.9% 10 Ml Syringe) 10 ml IVP PRN PRN PRN Reason: NEEDED PER PROVIDER ORDERS Sodium Chloride (Sodium Chloride Flush 0.9% 10 Ml Syringe) 10 ml IVP 0100,0900,1700 [facility] Last Admin: 08/02/22 01:07 Dose: Not Given Objective - Vital Signs/Intake & Output Reviewed Vital Signs: Yes Vital Signs: Vital Signs x48h Temp Pulse Resp BP BP Pulse Ox 08/02/22 06:45 77 95/55 L 89/60 L 08/02/22 04:05 36.4 C L 78 16 82/53 L 95 08/02/22 01:42 72 100/63 08/01/22 23:40 36.4 C L 74 16 82/50 L 99 Intake & Output: Intake & Output 07/30/22 07/31/22 08/01/22 08/02/22 23:59 23:59 23:59 23:59 Intake Total 1198.333 831.667 Balance 1198.333 831.667 - Objective General Appearance: positive: No acute distress (Frail elderly appearing woman with extensive eccyhmosis in her L arm.) Eyes Bilateral: positive: Normal inspection ENT: positive: ENT inspection nml Neck: positive: Nml inspection Respiratory: positive: Chest non-tender, Breath sounds nml Cardiovascular: positive: Irregularly irregular, Systolic murmur Peripheral Pulses: 1+ Posterior tibialis (R), 1+ Posterior tibialis (L), 2+ Radial (R), 2+ Radial (L) Abdomen: positive: Non-tender Back: positive: Nml inspection Skin: positive: Color nml, Other (ecchymosis R hip and R arm.) Extremities: positive: Non-tender Neurologic/Psychiatric: positive: Oriented x3 - Lab Results Fish Bones: 08/02/22 05:31 08/02/22 05:31 Other Labs: Lab Results x24hrs 08/02/22 08/02/22 08/02/22 Range/Units 05:31 05:31 05:31 WBC 7.0 (4.8-10.8) x10^3/uL RBC 2.59 L (4.20-5.40) 10^6/uL Hgb 8.0 L (12.0-16.0) g/dL Hct 25.9 L (37.0-47.0) % MCV 100.0 H (81.0-99.0) fL MCH 30.9 (27.0-31.0) pg MCHC 30.9 L (32.0-36.0) g/dL RDW 15.3 H (12.0-15.0) % Plt Count 172 (130-450) 10^3/uL MPV 9.9 (7.9-10.8) fL Neut # (Auto) 5.2 (1.5-6.6) 10^3/uL Lymph # (Auto) 1.2 L (1.5-3.5) 10^3/uL Sherman # (Auto) 0.5 (0.0-1.0) 10^3/uL Eos # (Auto) 0.0 (0.0-0.7) 10^3/uL Baso # (Auto) 0.0 (0.0-0.1) 10^3/uL Absolute Nucleated RBC 0.00 x10^3/uL Nucleated RBC % 0.0 /100WBC PT 20.2 H (9.9-12.6) secs INR 1.9 H (0.8-1.2) Sodium 139 (135-145) mmol/L Potassium 4.1 (3.5-5.0) mmol/L Chloride 102 (101-111) mmol/L Carbon Dioxide 30 (21-32) mmol/L Anion Gap 7.0 (6-13) BUN 36 H (6-20) mg/dL Creatinine 1.4 H (0.4-1.0) mg/dL Estimated GFR (MDRD) 35 L (>89) Glucose 85 (70-100) mg/dL Calcium 8.8 (8.5-10.3) mg/dL Nasal Adenovirus (PCR) Nasal B. parapertussis DNA (PCR) Nasal Coronavir 229E PCR Nasal Coronavir HKU1 PCR Nasal Coronavir NL63 PCR Nasal Coronavir OC43 PCR Nasal Enterovir/Rhinovir PCR Nasal Influenza B PCR Nasal Influenza A PCR Nasal Parainfluen 1 PCR Nasal Parainfluen 2 PCR Nasal Parainfluen 3 PCR Nasal Parainfluen 4 PCR Nasal RSV (PCR) Nasal B.pertussis DNA PCR Nasal C.pneumoniae (PCR) Vini Human Metapneumo PCR Nasal M.pneumoniae (PCR) Nasal SARS-CoV-2 (PCR) Blood Type Blood Type Recheck Antibody Screen 08/01/22 08/01/22 08/01/22 Range/Units 23:25 18:25 17:28 WBC 7.6 (4.8-10.8) x10^3/uL RBC 2.42 L (4.20-5.40) 10^6/uL Hgb 7.4 L (12.0-16.0) g/dL Hct 24.0 L (37.0-47.0) % MCV 99.2 H (81.0-99.0) fL MCH 30.6 (27.0-31.0) pg MCHC 30.8 L (32.0-36.0) g/dL RDW 14.9 (12.0-15.0) % Plt Count 163 (130-450) 10^3/uL MPV 9.9 (7.9-10.8) fL Neut # (Auto) (1.5-6.6) 10^3/uL Lymph # (Auto) (1.5-3.5) 10^3/uL Sherman # (Auto) (0.0-1.0) 10^3/uL Eos # (Auto) (0.0-0.7) 10^3/uL Baso # (Auto) (0.0-0.1) 10^3/uL Absolute Nucleated RBC x10^3/uL Nucleated RBC % /100WBC PT (9.9-12.6) secs INR (0.8-1.2) Sodium (135-145) mmol/L Potassium (3.5-5.0) mmol/L Chloride (101-111) mmol/L Carbon Dioxide (21-32) mmol/L Anion Gap (6-13) BUN (6-20) mg/dL Creatinine (0.4-1.0) mg/dL Estimated GFR (MDRD) (>89) Glucose (70-100) mg/dL Calcium (8.5-10.3) mg/dL Nasal Adenovirus (PCR) Nasal B. parapertussis DNA (PCR) Nasal Coronavir 229E PCR Nasal Coronavir HKU1 PCR Nasal Coronavir NL63 PCR Nasal Coronavir OC43 PCR Nasal Enterovir/Rhinovir PCR Nasal Influenza B PCR Nasal Influenza A PCR Nasal Parainfluen 1 PCR Nasal Parainfluen 2 PCR Nasal Parainfluen 3 PCR Nasal Parainfluen 4 PCR Nasal RSV (PCR) Nasal B.pertussis DNA PCR Nasal C.pneumoniae (PCR) Vini Human Metapneumo PCR Nasal M.pneumoniae (PCR) Nasal SARS-CoV-2 (PCR) Blood Type A NEGATIVE Blood Type Recheck A NEGATIVE Antibody Screen NEGATIVE 08/01/22 08/01/22 08/01/22 Range/Units 17:28 14:30 13:29 WBC 7.7 (4.8-10.8) x10^3/uL RBC 2.53 L (4.20-5.40) 10^6/uL Hgb 7.7 L (12.0-16.0) g/dL Hct 24.9 L (37.0-47.0) % MCV 98.4 (81.0-99.0) fL MCH 30.4 (27.0-31.0) pg MCHC 30.9 L (32.0-36.0) g/dL RDW 15.0 (12.0-15.0) % Plt Count 164 (130-450) 10^3/uL MPV 9.8 (7.9-10.8) fL Neut # (Auto) (1.5-6.6) 10^3/uL Lymph # (Auto) (1.5-3.5) 10^3/uL Sherman # (Auto) (0.0-1.0) 10^3/uL Eos # (Auto) (0.0-0.7) 10^3/uL Baso # (Auto) (0.0-0.1) 10^3/uL Absolute Nucleated RBC x10^3/uL Nucleated RBC % /100WBC PT > 120.0 H* (9.9-12.6) secs INR > 10.0 H* (0.8-1.2) Sodium (135-145) mmol/L Potassium (3.5-5.0) mmol/L Chloride (101-111) mmol/L Carbon Dioxide (21-32) mmol/L Anion Gap (6-13) BUN (6-20) mg/dL Creatinine (0.4-1.0) mg/dL Estimated GFR (MDRD) (>89) Glucose (70-100) mg/dL Calcium (8.5-10.3) mg/dL Nasal Adenovirus (PCR) NOT DETECTED Nasal B. parapertussis DNA (PCR) NOT DETECTED Nasal Coronavir 229E PCR NOT DETECTED Nasal Coronavir HKU1 PCR NOT DETECTED Nasal Coronavir NL63 PCR NOT DETECTED Nasal Coronavir OC43 PCR NOT DETECTED Nasal Enterovir/Rhinovir PCR NOT DETECTED Nasal Influenza B PCR NOT DETECTED Nasal Influenza A PCR NOT DETECTED Nasal Parainfluen 1 PCR NOT DETECTED Nasal Parainfluen 2 PCR NOT DETECTED Nasal Parainfluen 3 PCR NOT DETECTED Nasal Parainfluen 4 PCR NOT DETECTED Nasal RSV (PCR) NOT DETECTED Nasal B.pertussis DNA PCR NOT DETECTED Nasal C.pneumoniae (PCR) NOT DETECTED Vini Human Metapneumo PCR NOT DETECTED Nasal M.pneumoniae (PCR) NOT DETECTED Nasal SARS-CoV-2 (PCR) NOT DETECTED Blood Type Blood Type Recheck Antibody Screen 08/01/22 08/01/22 Range/Units 12:27 12:27 WBC 7.9 (4.8-10.8) x10^3/uL RBC 2.98 L (4.20-5.40) 10^6/uL Hgb 9.0 L (12.0-16.0) g/dL Hct 29.2 L (37.0-47.0) % MCV 98.0 (81.0-99.0) fL MCH 30.2 (27.0-31.0) pg MCHC 30.8 L (32.0-36.0) g/dL RDW 15.0 (12.0-15.0) % Plt Count 195 (130-450) 10^3/uL MPV 9.6 (7.9-10.8) fL Neut # (Auto) 6.9 H (1.5-6.6) 10^3/uL Lymph # (Auto) 0.5 L (1.5-3.5) 10^3/uL Sherman # (Auto) 0.5 (0.0-1.0) 10^3/uL Eos # (Auto) 0.0 (0.0-0.7) 10^3/uL Baso # (Auto) 0.0 (0.0-0.1) 10^3/uL Absolute Nucleated RBC 0.00 x10^3/uL Nucleated RBC % 0.0 /100WBC PT (9.9-12.6) secs INR (0.8-1.2) Sodium 137 (135-145) mmol/L Potassium 3.7 (3.5-5.0) mmol/L Chloride 95 L (101-111) mmol/L Carbon Dioxide 28 (21-32) mmol/L Anion Gap 14.0 H (6-13) BUN 36 H (6-20) mg/dL Creatinine 1.8 H (0.4-1.0) mg/dL Estimated GFR (MDRD) 27 L (>89) Glucose 129 H (70-100) mg/dL Calcium 9.1 (8.5-10.3) mg/dL Nasal Adenovirus (PCR) Nasal B. parapertussis DNA (PCR) Nasal Coronavir 229E PCR Nasal Coronavir HKU1 PCR Nasal Coronavir NL63 PCR Nasal Coronavir OC43 PCR Nasal Enterovir/Rhinovir PCR Nasal Influenza B PCR Nasal Influenza A PCR Nasal Parainfluen 1 PCR Nasal Parainfluen 2 PCR Nasal Parainfluen 3 PCR Nasal Parainfluen 4 PCR Nasal RSV (PCR) Nasal B.pertussis DNA PCR Nasal C.pneumoniae (PCR) Vini Human Metapneumo PCR Nasal M.pneumoniae (PCR) Nasal SARS-CoV-2 (PCR) Blood Type Blood Type Recheck Antibody Screen - Diagnostic Imaging Diagnostic Imaging Results: positive: Final report reviewed Diagnostic Imaging Comments: CTA abdomen Pelvis 08/02/22 Impression: Stable iliacus hematoma without visualized extravasation or active hemorrhage. Assessment/Plan - Problem List (1) Acute anemia Impression: H&H labial. Acute blood loss anemia. H&H 8.0/25.9 this am given hx of CAD plan to transfuse 1 unit PRBC Plan: recheck CBC this evening (2) Hematoma Impression: CTa of abd/pelivs shows stable iliacus hematoma with no active hemmorhage Plan: INR 1.9 now recheck CBC with am labs (3) Supratherapeutic INR Impression: INR 1.9 this am, Pt states her daughter Siri manages her medications. Plan: Vitamin K given INR much improved, recheck with am labs (4) Atrial fibrillation with RVR Impression: known Afib, on coumadin, no beta richi listed on home meds, beta richi started yesterday Plan: hold anticoagulation, until supratherapeutic INR resolved (5) Hypertension Impression: history of HTN, normotensive to hypotensive on this admission Plan: hold diuretics, hold entresto, Qualifiers: Hypertension type: primary hypertension Qualified Code(s): I10 - Essential (primary) hypertension (6) Congestive heart failure (CHF) Impression: EF at one point was less than 35-40%. Most recent ECHO 02/19/21 shows R heart strain. Left ventricular EF normal now, Dr. Hammond reports a recovered EF with goal directed therapy in his note 02/24/21. Normal to hypotensive now and tachycardic, in the setting of acute blood loss anemia due to hematoma. Plan: Will hold diuretics for now, plan to transfuse 1 unit. Will restart diuretics tomorrow if BP and HR stable. Qualifiers: Heart failure type: right-sided (7) Hypothyroidism Impression: has hypothyroidism, on replacement. Plan: continue home meds Qualifiers: Hypothyroidism type: unspecified Qualified Code(s): E03.9 - Hypothyroidism, unspecified
[2022-08-02] MEDS: METOPROLOL TARTRATE 25 MG TABLET PO SCH ×2 (08:37→20:51)
[2022-08-02] MEDS: ACETAMINOPHEN 325 MG TABLET PO PRN (08:58)
[2022-08-02] MEDS: SODIUM CHLORIDE 0.9% 1,000 ML IV SCH (10:23)
[2022-08-02] MEDS ORDERED: iohexoL-300 100 ML VIAL ONE (10:53)
--- NOTE | 2022-08-02 11:30 | PHARMACY PROGRESS NOTE ---
- Best Possible Medication History Admit Date and Time: 08/01/22 1424 Processed by: Pharmacy Medication History completed: Yes Patient Interview: Completed Secondary Source(s): Other family member (Siri her daughter has a med list. ), Pharmacy records As the person ultimately responsible for medication therapy, providers are able to order a medication from an existing home medication list in [facility] via the "Reconcile Routine" prior to Confirmation of that medication by manager decision support. Such practice is discouraged except when the physician, in their clinical judgment, deems that a medical need exists for a medication without regard to previous use.
--- NOTE | 2022-08-02 12:38 | CT Report ---
PROCEDURE: ANGIO ABDOMEN/PELVIS W INDICATIONS: bleeding into iliacus from INR 10 CONTRAST: 100ml Omnipaque 300 TECHNIQUE: After the administration of intravenous contrast, 2.5 mm thick sections acquired from the diaphragm t o the symphysis. 10 mm maximum-intensity projection (MIP) reformats were then acquired. For radiati on dose reduction, the following was used: automated exposure control, adjustment of mA and/or kV ac cording to patient size. COMPARISON: CT pelvis 08/01/2022 FINDINGS: Image quality: Excellent. Aorta: Atherosclerotic changes present within the visualized abdominal aorta. Mesenteric arteries: Celiac trunk, superior and inferior mesenteric arteries appear patent. Right pelvic arteries: Widely patent. Left pelvic arteries: Widely patent. Extravascular soft tissues: Mild bilateral effusions. Heart size is enlarged. Liver is enlarged measu ring 18.8 cm with steatosis. The spleen is normal in size and enhancement. Gallbladder is contracted without gross visualized stone.. Biliary system is non dilated. Pancreas enhances normally. No ad renal nodules. Kidneys are normal in size and enhancement, without hydronephrosis. Non opacified mariella wel loops are normal in wall thickness and caliber. No free fluid or air. No retroperitoneal or mes enteric adenopathy. Previous identified enlargement of the right iliacus muscle is relatively unchan ged in size. Hounsfield units measure between 48 and 52. There is no visualized contrast extravasatio n within the hematoma. No ventral hernias. No suspicious bony lesions. No vertebral body compressio n fractures. There is rightward scoliotic curvature of the visualized lumbar spine. IMPRESSION: Stable iliacus hematoma without visualized extravasation or active hemorrhage. Reviewed by: Keesha Martin MD on 08/02/2022 12:37 PM PST Approved by: Keesha Martin MD on 08/02/2022 12:37 PM PST Station ID: [id number]
[2022-08-02] MEDS: MULTIVITAMIN W/MINERALS TABLET PO SCH ×2 (13:53→14:15)
[2022-08-02] MEDS ORDERED: iohexoL-300 100 ML VIAL IVP ONE (15:38)
[2022-08-03] MEDS: SODIUM CHLORIDE 0.9% 1,000 ML IV SCH (04:00)
[2022-08-03 05:01] LABS: BASOPHILS % (AUTO) 0.3 %; EOSINOPHILS # (AUTO) 0.1 10^3/uL (0.0-0.7); HCT - HEMATOCRIT 28.3 % (37.0-47.0); LYMPHOCYTES % (AUTO) 13.5 %; MEAN CORPUSCULAR HEMOGLOBIN 30.4 pg (27.0-31.0); MEAN CORPUSCULAR HGB CONC 31.8 g/dL (32.0-36.0); MEAN CORPUSCULAR VOLUME 95.6 fL (81.0-99.0); MEAN PLATELET VOLUME 10.1 fL (7.9-10.8); MONOCYTES # (AUTO) 0.5 10^3/uL (0.0-1.0); NEUTROPHILS # (AUTO) 5.6 10^3/uL (1.5-6.6); NEUTROPHILS % (AUTO) 77.4 %; NRBC ABSOLUTE COUNT (AUTO) 0.08 x10^3/uL; NUCLEATED RED BLOOD CELLS AUTO 1.1 /100WBC; PLT - PLATELET COUNT 191 10^3/uL (130-450); RED BLOOD COUNT 2.96 10^6/uL (4.20-5.40); RED CELL DISTRIBUTION WIDTH 17.5 % (12.0-15.0); WHITE BLOOD COUNT 7.3 x10^3/uL (4.8-10.8)
[2022-08-03 05:07] LABS: INR 1.4 (0.8-1.2); PT - PROTHROMBIN TIME 14.9 secs (9.9-12.6)
[2022-08-03 05:12] LABS: CALCIUM 8.3 mg/dL (8.5-10.3); POTASSIUM 3.8 mmol/L (3.5-5.0)
[2022-08-03] MEDS: SODIUM CHLORIDE FLUSH 0.9% 10 ML SYRINGE IVP SCH (05:54)
[2022-08-03] MEDS: LEVOTHYROXINE 75 MCG TABLET PO SCH (07:04)
[2022-08-03] MEDS: MULTIVITAMIN W/MINERALS TABLET PO SCH (08:39)
[2022-08-03] MEDS: METOPROLOL TARTRATE 25 MG TABLET PO SCH (08:39)
--- NOTE | 2022-08-03 11:33 | Discharge Plan ---
Discharge Plan for SNF / [facility] - Discharge Plan And Transition Orders Problem Reviewed?: Yes Disposition: 03 SNF DC/Xfer Condition: Fair Allergies and Adverse Reactions: Allergies Allergy/AdvReac Type Severity Reaction Status Date / Time Sulfa (Sulfonamide Allergy Unknown Verified 08/01/22 11:58 Antibiotics) Health Concerns: You required hospitalization because of a very large bruise that developed under your muscles of the right leg/hip, caused by your blood being "too thin", which was found on blood testing of your excessively elevated INR level. This was caused by your Coumadin medication. You are being discharged today, and may resume Coumadin, so that the Coumadin will slowly bring your INR blood test into its therapeutic range (of 1.9 - 3). There are now orders to have the INR checked more frequently (daily) through 08/07/22. Do not take any Coumadin if the INR level is greater than 3. After 08/07/22, your Primary Care Provider needs to order the INR blood tests either daily, or every other day, or weekly, or as she decides, and will continue to advise what Coumadin dose you should take. You may resume all your other usual pre-hospital medications, EXCEPT take the higher dose of Coumadin only on , AND there is one NEW medication started for the heart, called Metoprolol, ordered to keep the heart rate controlled, which has been electronically prescribed to [facility] in [place]. Plan of Treatment: As above. Care Goals: Improvement in symptoms and stabilization are the goals. Assessment: The patient, and daughter at bedside, understand and are agreeable with the plan. - SNF / [facility] Transition Orders Admit to (Facility): [place] Under the care of (Name): Tosin Harley Discharge Diagnosis: (1) Hematoma (2) Supratherapeutic INR (3) Acute anemia (4) Atrial fibrillation with RVR (5) Hypertension (6) Congestive heart failure (CHF) (7) Hypothyroidism Other Notification Orders: Call PCP immediately if patient develops dyspnea, chest pain/tightness or edema. House Bowel Program: Yes Additional Bowel Program Orders: If no BM after 2 days, nurse may give M.O.M. 30ml PO PRN and/or ducolax Supp 1 MI and/or BISI 250mg P.O., and/or senna 1-2 tabs PO. On day 3 nurse may give repeat above order until residents constipation is resolved. Annual Influenza Vaccine (between Mar 11 and October 08): Yes Two-step PPD per [facility] [phone] or approved exception documents: Yes Lab Tests or X-ray Orders: Daily INR on 08/04/22, 08/05/22, 08/06/22 and 08/07/22. Medication Orders: PLEASE REFER TO THE DISCHARGE MEDICATION LIST. Insulin Orders?: No - Medications New Prescriptions: Metoprolol Succinate [Toprol Xl] 25 mg PO DAILY #30 tablet - Diet Type: Geriatric Texture: Regular Liquids: Thin May have monthly special meal: Yes - Therapies | Activity Activity: Activity as Tolerated Additional Instructions: If you have any questions, call your Primary Care provider's office. Follow Up: Keep your usual next appointment to Tosin Harley.
[2022-08-03 11:48] VITALS: BP 99/66
[2022-08-03] MEDS ORDERED: WARFARIN 5 MG TABLET PO SCH (12:00)
--- NOTE | 2022-08-03 12:02 | DISCHARGE SUMMARY ---
Discharge Summary Admit Date: 08/01/22 Discharge Date: 08/03/22 Discharging Provider: Dr Shelly Arshad Primary Care Provider: LUIS MIGUEL Harley Code Status: Do Not Attempt Resuscitation Condition at Discharge: Fair Discharge Disposition: 03 SNF DC/Xfer - HPI History of Present Illness: Ophelia George is a 87 yo female with PMH CAD, CHF with recovered EF, h ypothyroidism, Afib not on BB, but is on warfarin for anticoagulation, moderate , pulmonary HTN, dual chamber pacemaker placed in 2014, s/p elective cardioversion 2017, HTN, HLD, CKD stage III. Presented to ED for hip pain for past [address] of pelvis found large right iliacus intramuscular hematoma. INR very elevated at 10. HR 137, BP 114/92. I encounter Ophelia lying in bed. She is a frail elderly woman who brightens when I approach. She is a poor historian and lacks insight into her medical conditions. She lives [place] with her , over the last week she began noticing bruising on her arms and had pain in her R hip. She went to her coumadin clinic who had her get and ultrasound, she is unsure of why, and then told her to come here. She is uncertain of her medications stating, "my daughter puts them in baggies and I just take the bag on the right day." At this time her INR will be reversed. I will monitor her hemoglobin to make sure she does not need a transfusion. I do not have access to her old records so I do not know why she is not rate controlled in atrial fibrillation. She may have had an untoward reaction to antiarrhythmics. I will go ahead and start a low dose of metoprolol. We will also continue to watch her carefully for signs of fluid overload since she has a history of reduced ejection fraction. Her CODE STATUS is DNR. - HOSPITAL COURSE Hospital Course: (1) Hematoma of groin This was treated with rest, pain medications and will be slow to resolve. (2) Supratherapeutic INR She received vitamin K and Kcentra. The next day her INR was 1.9. The following day her INR was 1.4. Coumadin was then resumed at usual doses and we want the INR to only come up slowly to its therapeutic dose in the next several days. At discharge, daily INR's, to be done at her Assisted Living Facility, were ordered for the next 4 days. (3) Anemia assoc with acute blood loss Hgb was 9 and then dropped to 7.4. She received 1 Unit of blood transfused. Hgb was 9 at discharge. (4) Chronic atrial fibrillation with RVR The patient presented on no heart rate slowing medications. She was put on metoprolol 12.5 twice daily which brought her heart rate down to 75-90. She was discharged home with a new prescription for Toprol-XL 25 mg p.o. daily. (5) Hx of Congestive heart failure (CHF) We do not have Entresto on formulary. She was started on new B-richi for heart rate control. And she did not need Lasix while here. She probably no longer needs daily Lasix if she has a recovered ejection fraction. She may need adju stment in med doses overall. (6) Hypothyroidism We continued her usual dose of Synthroid. (7) Hypertension Her BP here was "soft". She probably no longer needs daily Lasix if she has a recovered ejection fraction. She may need a much lower dose of Entresto. - ALLERGIES Allergies/Adverse Reactions: Allergies Allergy/AdvReac Type Severity Reaction Status Date / Time Sulfa (Sulfonamide Allergy Unknown Verified 08/01/22 11:58 Antibiotics) - MEDICATIONS Home Medications: Ambulatory Orders Medication Instructions Recorded Confirmed Furosemide 20 mg PO DAILY 04/06/15 08/02/22 Sacubitril/Valsartan [Entresto 24 2 tab PO BID 08/01/22 08/02/22 mg-26 mg Tablet] Calcium Carbonate [Tums (Calcium 2 - 3 tab PO DAILY 08/02/22 08/02/22 Carbonate 500mg)] Donepezil [Aricept] 2 tab PO DAILY 08/02/22 08/02/22 Krill Oil/Hyaluronic/Astaxanth 1 tab PO DAILY 08/02/22 08/02/22 [Move Free Ultra [place] Jnt Plus] Levothyroxine Sodium 1 tab PO DAILY 08/02/22 08/02/22 Rosuvastatin Calcium [Crestor] 1 tab PO HS 08/02/22 08/02/22 Metoprolol Succinate [Toprol Xl] 25 mg PO DAILY #30 tablet 08/03/22 Warfarin [Coumadin] 1 tab PO SUMOTUWEFRSA #0 08/03/22 08/02/22 Warfarin [Coumadin] 5 mg PO TH #0 08/03/22 08/02/22 - PHYSICAL EXAM AT DISCHARGE General Appearance: positive: No acute distress, Alert Eyes Bilateral: positive: Normal inspection, EOMI ENT: positive: ENT inspection nml, No signs of dehydration Neck: positive: Nml inspection, No JVD Respiratory: positive: No respiratory distress Cardiovascular: positive: Irregularly irregular Abdomen: positive: Non-tender, No distention Skin: positive: Warm, Dry Extremities: positive: Non-tender, No pedal edema Neurologic/Psychiatric: positive: Oriented x3, Motor nml - LABS Result Diagrams: 08/03/22 04:21 08/03/22 04:21 - DIAGNOSTIC IMAGING Diagnostic Imaging Results: Final report reviewed - FOLLOW UP Follow Up: See PCP for a hosp F/U visit. - TIME SPENT Time Spent in Discharge (Minutes): 30
== END 2022-08-03 14:01 | DRG 812 ==
LOC: ED 11:43 → MS2 14:24
PROVIDERS: ADMIT Specialist; ATTEND Internal Medicine
PROC: 30233N1 Transfusion of Nonautologous Red Blood Cells into Peripheral Vein, Percutaneous Approach (ICD-10-PCS; principal; 2022-08-02)
DX: D64.9 Anemia, unspecified (principal); D62 Acute posthemorrhagic anemia; I13.0 Hypertensive heart and chronic kidney disease with heart failure and stage 1 through stage 4 chronic kidney disease, or unspecified chronic kidney disease; I50.9 Heart failure, unspecified; N18.9 Chronic kidney disease, unspecified; I48.20 Chronic atrial fibrillation, unspecified; I50.30 Unspecified diastolic (congestive) heart failure; I48.91 Unspecified atrial fibrillation; M19.90 Unspecified osteoarthritis, unspecified site; M16.11 Unilateral primary osteoarthritis, right hip; Z68.1 Body mass index [BMI] 19.9 or less, adult; M79.81 Nontraumatic hematoma of soft tissue; R79.1 Abnormal coagulation profile; N18.30 Chronic kidney disease, stage 3 unspecified; I25.10 Atherosclerotic heart disease of native coronary artery without angina pectoris; I27.20 Pulmonary hypertension, unspecified; I35.0 Nonrheumatic aortic (valve) stenosis; E03.9 Hypothyroidism, unspecified; E78.00 Pure hypercholesterolemia, unspecified; Z20.822 Contact with and (suspected) exposure to COVID-19; Z66 Do not resuscitate; Z71.3 Dietary counseling and surveillance; Z79.01 Long term (current) use of anticoagulants; Z79.890 Hormone replacement therapy; Z79.899 Other long term (current) drug therapy; Z87.891 Personal history of nicotine dependence; Z88.2 Allergy status to sulfonamides; Z90.49 Acquired absence of other specified parts of digestive tract; Z90.710 Acquired absence of both cervix and uterus; Z95.0 Presence of cardiac pacemaker; Z95.5 Presence of coronary angioplasty implant and graft
CPT/HCPCS: 36415; 72192; 74174; 80048; 85025; 85027; 85610; 86850; 86900; 86901; 86920; 87633; 93005; 99285; A9270; J7168; P9016; Q9967

== ENCOUNTER 2022-11-25 00:41 | Outpatient (CLI) | payer MEDICARE, OTHER | END 2022-11-25 23:59 | disposition critical access hospital (66) | LOC: EMS 00:41 | DX: R53.1 Weakness (principal); R63.0 Anorexia; I10 Essential (primary) hypertension; I48.91 Unspecified atrial fibrillation; M79.605 Pain in left leg; R06.02 Shortness of breath | CPT/HCPCS: A0425; A0429 ==

== ENCOUNTER 2022-11-25 01:43 | Emergency (ER) | payer MEDICARE, OTHER | END 2022-11-25 04:30 | disposition home or self-care (01) | LOC: EDBD → MERGE 01:43 → ED 01:43 | DX: M79.672 Pain in left foot (principal); R53.1 Weakness; I48.91 Unspecified atrial fibrillation; F03.90 Unspecified dementia, unspecified severity, without behavioral disturbance, psychotic disturbance, mood disturbance, and anxiety | CPT/HCPCS: 93005; 99283 ==

== ENCOUNTER 2022-11-25 02:06 | Outpatient (CLI) | payer MEDICARE, OTHER | END 2022-11-25 02:07 | disposition home or self-care (01) | LOC: EMS 02:06 | PROVIDERS: ATTEND Emergency Medicine | DX: R53.1 Weakness (principal); R41.0 Disorientation, unspecified; I48.91 Unspecified atrial fibrillation; F03.90 Unspecified dementia, unspecified severity, without behavioral disturbance, psychotic disturbance, mood disturbance, and anxiety | CPT/HCPCS: A0425; A0428 ==

== ENCOUNTER 2023-04-01 12:59 | Emergency (ER) | payer MEDICARE, OTHER ==
[2023-04-01] MEDS ORDERED: SODIUM CHLORIDE 0.9% 1,000 ML IV STA ×2 (13:13→14:34)
--- NOTE | 2023-04-01 13:22 | ED Physician Documentation ---
History of Present Illness - Stated complaint Stated Complaint: GIB - Additonal information Additional information: 87-year-old female presents the emergency department for evaluation of bright red blood per rectum. It was noted this AM. Patient resides at [facility] with her . She does have a history of CAD, HTN, CKD stage III, CHF, A- fib on Eliquis, aortic stenosis, pulmonary hypertension as well as a pacer in place and dementia. Reportedly this morning she was slow to wake up. When the care staff were caring for her they found a lot of blood in her undergarments. EMS was summoned. On presentation she had a systolic blood pressure of 70. Blood glucose was 72. In route to they infused 800 mL of saline with resultant rise of systolic pressures to the 90s. EMS reported difficulty obtaining sats and placed her on a NRB enroute. No hx of oxygen therapy prior. A POLST indicates that the patient is a DNR with selective treatments. Patient is able to open her eyes and tell me that she is in the hospital. Denies pain shortness of air or complaints otherwise. Review of Systems Unable to obtain: Dementia, Other (as per EMS) PD PAST MEDICAL HISTORY - Past Medical History Cardiovascular: High cholesterol, Atrial fibrillation, Congestive heart failure, Hypertension, Other Respiratory: None Endocrine/Autoimmune: HyPOthyroidism GI: None BELT DRESSER: None : None HEENT: None Psych: None Musculoskeletal: Osteoarthritis Derm: Herpes zoster - Past Surgical History Past Surgical History: Yes General: Appendectomy, Other /BELT DRESSER: Hysterectomy, Other Cardiovascular: Coronary stent, Cardiac catheterization - Present Medications Home Medications: Ambulatory Orders Medication Instructions Recorded Confirmed Furosemide 20 mg PO DAILY 04/06/15 08/02/22 Sacubitril/Valsartan [Entresto 24 2 tab PO BID 08/01/22 08/02/22 mg-26 mg Tablet] Calcium Carbonate [Tums (Calcium 2 - 3 tab PO DAILY 08/02/22 08/02/22 Carbonate 500mg)] Donepezil [Aricept] 2 tab PO DAILY 08/02/22 08/02/22 Krill Oil/Hyaluronic/Astaxanth 1 tab PO DAILY 08/02/22 08/02/22 [Move Free Ultra [place] Jnt Plus] Levothyroxine Sodium 1 tab PO DAILY 08/02/22 08/02/22 Rosuvastatin Calcium [Crestor] 1 tab PO HS 08/02/22 08/02/22 Metoprolol Succinate [Toprol Xl] 25 mg PO DAILY #30 tablet 08/03/22 Warfarin [Coumadin] 1 tab PO SUMOTUWEFRSA #0 08/03/22 08/02/22 Warfarin [Coumadin] 5 mg PO TH #0 08/03/22 08/02/22 Morphine Oral Soln [Roxanol] 10 mg PO QID PRN #30 ml 04/01/23 - Allergies Allergies/Adverse Reactions: Allergies Allergy/AdvReac Type Severity Reaction Status Date / Time Sulfa (Sulfonamide Allergy Unknown Verified 11/25/22 08:19 Antibiotics) - Social History Does the pt smoke?: No Smoking Status: Former smoker Does the pt drink ETOH?: No Does the pt have substance abuse?: No - Immunizations Immunizations are current?: Yes - POLST POLST Status: other PD ED PE EXPANDED - General General: No acute distress, Other (Thin frail elderly appearance. Cachectic.) - Cardiac Cardiac: Irregularly irregular. No: Pedal strong equal (1+ DP pulses bilaterally), Cap refill < 2 sec (4 seconds) - Respiratory Respiratory: Clear to ausultation jelena - Abdomen Abdomen: Normal Bowel sounds. No: Tender to palpation - Rectal Rectal: Other (Jonny hematochezia.) - Extremities Extremities: No: Deformity, Tenderness - Neuro Neuro: Confused (baseline), CNII-XII intact - GCS Eye Opening: Spontaneous Motor: Obeys Commands Verbal: Confused Total: 14 Results - Vitals Vitals: Vital Signs - 24 hr 04/01/23 04/01/23 04/01/23 13:15 13:50 14:00 Temperature 36.0 C L Heart Rate 72 Respiratory 25 H Rate Blood Pressure 95/64 O2 Saturation 92 80 L 100 If not protocol 7 : Oxygen Flow, liters/minute 04/01/23 04/01/23 04/01/23 14:28 15:22 16:00 Temperature 35.9 C L Heart Rate 74 73 70 Respiratory 20 17 20 Rate Blood Pressure 76/52 L 74/55 L 82/70 L O2 Saturation 98 95 88 L If not protocol 3 1 : Oxygen Flow, liters/minute 04/01/23 16:32 Temperature Heart Rate 71 Respiratory 16 Rate Blood Pressure 66/45 L O2 Saturation 100 If not protocol : Oxygen Flow, liters/minute Oxygen O2 Source Nasal cannula - EKG (time done) 1518 EKG releavant findings:: EKG personally interpreted by author of this note. Relevant findings are: Rate: Rate (enter#) (71) Rhythm: Atrial fibrillation, Other (paced) Compare to prior EKG: Unchanged from prior EKG Computer interpretation: Agree with computer - Labs Labs: Laboratory Tests 04/01/23 04/01/23 04/01/23 14:13 15:09 16:15 WBC 10.4 RBC 5.25 Hgb 16.3 H Hct 53.5 H MCV 101.9 H MCH 31.0 MCHC 30.5 L RDW 15.8 H Plt Count 162 MPV 11.5 H Neut # (Auto) 9.3 H Lymph # (Auto) 0.3 L [place] # (Auto) 0.7 Eos # (Auto) 0.0 Baso # (Auto) 0.0 Absolute Nucleated RBC 0.00 Nucleated RBC % 0.0 INR (Fingerstick) 2.5 H Sodium 142 Potassium 5.2 H Chloride 96 L Carbon Dioxide 29 Anion Gap 17.0 H BUN 42 H Creatinine 2.2 H Estimated GFR (MDRD) 21 L Glucose 95 Calcium 9.3 Total Bilirubin 1.2 H AST 1129 H ALT 577 H Alkaline Phosphatase 48 Total Protein 6.1 L Albumin 3.3 Globulin 2.8 Albumin/Globulin Ratio 1.2 Lipase 26 - Rads (name of study) cxr Relevant Findings:: Final report received (marked cardiomegaly with small pleural effusions) PD Medical Decision Making - ED course Complexity details: reviewed results, re-evaluated patient, d/w patient, d/w family ED course: 87-year-old female who resides at [facility] and has a complex medical history that includes hypertension, CAD, CKD, A-fib on Eliquis presents the emergency department for evaluation of hematochezia noted this morning. She has had soft to low blood pressures. These improved with a liter of saline. Has a POLST form that indicates she is a DO NOT RESUSCITATE with selective measures. Her medical power of bilingual medical receptionist is currently in [place] but the patient's niece who is also close indicates that she has been in conversation with the patient's daughter who does not want aggressive interventions for this GI bleed. She simply wants her mother to be made comfortable. At this time we have placed an IV and given IV fluids. Labs are pending. I am going to await the arrival of the daughter to talk about further care measures 1645: I reviewed the patient's lab which show a hemoglobin of 16.5. This likely indicates hemoconcentration. Electrolytes show derangement with potassium of 5.2. BUN elevated at 42 and creatinine of 2.2. She does have some abnormal AST ALT of 1129 and 577. This may be shock liver While here in the emergency department the patient has been persistently hypotensive typically 60/50 or 70/40. Despite this she has been arousable and can answer simple questions. Her daughter has arrived at the bedside. She would like comfort care measures only. She does not wish for advanced imaging or any intervention for the GI bleeding. I have ordered a palliative care consult and in speaking to the palliative care team this will be completed on Tuesday. Daughter would like patient discharged back to [facility] so that she can be with her father. I will order some Roxanol for any discomfort or difficulty breathing over the weekend. I made clear to the daughter that it is likely her mom will pass over the weekend if not sooner. She was comfortable with this. I did contact the hospice palliative care team. No admissions are available at this time on Tuesday afternoon. The palliative care/hospice team will be in contact with the patient and her family on Tuesday. She is discharged in critical poor condition with comfort care measures in place Departure - Departure Disposition: 01 Home, Self Care Clinical Impression: Lower GI bleeding, Anticoagulated Condition: Stable Record reviewed to determine appropriate education?: Yes Prescriptions: Morphine Oral Soln [Roxanol] 10 mg PO QID PRN #30 ml PRN Reason: Pain >8 Comments: Ophelia came to the emergency department today for lower GI bleeding. Her daughter has been at the bedside and has elected comfort care measures. In accordance with the patient's POLST and family preference no aggressive interventions are being undertakenfor the lower GI bleeding. Her blood pressures are very low. However Ophelia is not having any difficulty breathing or complaining of abdominal pain. We have ordered a palliative/hospice consult and they will be in contact with you on Tuesday.However it is very likely that she may pass or before then. I have ordered Roxanol a morphine sulfate medication to be administered every 6 hours as needed for any labored breathing or complaints of pain. please discontinue all medications with the exception of the Roxanol
[2023-04-01 14:24] LABS: BASOPHILS % (AUTO) 0.1 %; HCT - HEMATOCRIT 53.5 % (37.0-47.0); HGB - HEMOGLOBIN 16.3 g/dL (12.0-16.0); LYMPHOCYTES # (AUTO) 0.3 10^3/uL (1.5-3.5); LYMPHOCYTES % (AUTO) 3.3 %; MEAN CORPUSCULAR HGB CONC 30.5 g/dL (32.0-36.0); MEAN CORPUSCULAR VOLUME 101.9 fL (81.0-99.0); MEAN PLATELET VOLUME 11.5 fL (7.9-10.8); MONOCYTES # (AUTO) 0.7 10^3/uL (0.0-1.0); MONOCYTES % (AUTO) 6.6 %; NEUTROPHILS # (AUTO) 9.3 10^3/uL (1.5-6.6); NEUTROPHILS % (AUTO) 89.6 %; PLT - PLATELET COUNT 162 10^3/uL (130-450); RED BLOOD COUNT 5.25 10^6/uL (4.20-5.40); RED CELL DISTRIBUTION WIDTH 15.8 % (12.0-15.0); WHITE BLOOD COUNT 10.4 x10^3/uL (4.8-10.8)
--- NOTE | 2023-04-01 14:37 | XRAY Report ---
PROCEDURE: Chest 1 View X-Ray INDICATIONS: chest pain TECHNIQUE: One view of the chest was acquired. COMPARISON: None. FINDINGS: Surgical changes and devices: Left chest wall pacemaker generator with intravenous leads. Lungs and pleura: Probable small pleural effusions. Mediastinum: Mediastinal contours appear normal. Heart size is markedly enlarged. Bones and chest wall: No suspicious bony lesions. Overlying soft tissues appear unremarkable. IMPRESSION: Marked cardiomegaly. Probable small effusions. Reviewed by: Alex Ardon on 04/01/2023 2:35 PM PDT Approved by: Alex Ardon on 04/01/2023 2:35 PM PDT Station ID: [id number]
[2023-04-01 15:51] LABS: ALBUMIN 3.3 g/dL (3.2-5.5)
[2023-04-01 15:53] LABS: CREATININE 2.2 mg/dL (0.6-1.3); POTASSIUM 5.2 mmol/L (3.5-4.5)
[2023-04-01 15:54] LABS: ALBUMIN/GLOBULIN RATIO 1.2 (1.0-2.2); BILIRUBIN,TOTAL 1.2 mg/dL (0.2-1.0); CALCIUM 9.3 mg/dL (8.5-10.3); TOTAL PROTEIN 6.1 g/dL (6.4-8.9)
[2023-04-01 16:36] VITALS: BP 66/45; O2SAT 100
== END 2023-04-01 20:00 | disposition home or self-care (01) ==
LOC: EDUNIT# → EDSEX → ED 12:59
DX: K92.2 Gastrointestinal hemorrhage, unspecified (principal); I48.91 Unspecified atrial fibrillation; Z79.01 Long term (current) use of anticoagulants; I10 Essential (primary) hypertension; Z87.891 Personal history of nicotine dependence
CPT/HCPCS: 36415; 80053; 83605; 83690; 84439; 84443; 85025; 85610; 86850; 86900; 86901; 93005; 96360; 96361; 99284